=== PATIENT | female | born 1940 | race Caucasian/White ===

== ENCOUNTER → 2016-03-11 | Outpatient (CLI) | payer MEDICAID ==
--- NOTE | 2016-03-11 11:36 | DX ---
Left Rib Series, 4 Views Total, 10:42 a.m. Clinical History: 76-year-old female with left lower rib pain for 3 weeks, and no antecedent trauma. ICD10 Diagnostic Code: R07.81. Comparison Studies: Chest radiography dated January 29, 2016, and unenhanced CT imaging of the ches t dated June 12, 2015. Findings: A metallic BB has been placed over the inferolateral left rib cage. There is no correspond ing rib fracture, lytic or blastic lesion, or periostitis (this does not exclude the possibility of a localized costochondritis). The cardiac silhouette appears mildly enlarged, and there is some tortuo sity of the descending thoracic aorta. There is no focal infiltrate, pleural effusion, peripheral int erstitial edema, or pneumothorax. Degenerative features of the spine are seen. Impression: There is no acute or subacute osseous abnormality identified.
== END ==
LOC: CIMAGING 10:29
PROVIDERS: ATTEND Family Medicine
DX: R07.81 Pleurodynia (principal)
CPT/HCPCS: 71100-PO

== ENCOUNTER → 2016-05-22 | Outpatient (CLI) | payer MEDICAID | LOC: CIMAGING 15:27 | PROVIDERS: ATTEND Family Medicine | DX: M79.671 Pain in right foot (principal); M79.9 Soft tissue disorder, unspecified | CPT/HCPCS: 73650-PO ==

== ENCOUNTER → 2016-07-23 | Outpatient (CLI) | payer MEDICAID | LOC: CIMAGING 11:11 | PROVIDERS: ATTEND Family Medicine | DX: R91.1 Solitary pulmonary nodule (principal) | CPT/HCPCS: 71250-PO ==

== ENCOUNTER → 2016-12-10 | Outpatient (CLI) | payer MEDICAID | LOC: CIMAGING 14:26 | PROVIDERS: ATTEND Family Medicine | DX: M16.11 Unilateral primary osteoarthritis, right hip (principal); M79.604 Pain in right leg | CPT/HCPCS: 73502-PO; 73551-PO ==

== ENCOUNTER → 2016-12-19 | Outpatient (CLI) | payer MEDICAID | LOC: CIMAGING 11:55 | PROVIDERS: ATTEND Family Medicine | DX: Z12.31 Encounter for screening mammogram for malignant neoplasm of breast (principal) | CPT/HCPCS: G0202 ==

== ENCOUNTER → 2017-09-10 | Outpatient (CLI) | payer OTHER, MEDICAID | LOC: BHLMT 11:30 | PROVIDERS: ATTEND Internal Medicine Cardiovascular Disease | DX: I48.91 Unspecified atrial fibrillation (principal) | CPT/HCPCS: 93005-PO ==

== ENCOUNTER 2017-09-15 09:56 | Observation (INO) | payer OTHER, MEDICAID ==
--- NOTE | 2017-09-15 10:08 | CPEKG ---
Heart Rate: 75 RR Interval: 800 QRSD Interval: 78 QT Interval: 372 QTC Interval: 416 QRS [place]: -10 T Wave [place]: 16 EKG Severity - ABNORMAL ECG - EKG Impression: ATRIAL FIBRILLATION Electronically Signed By: Emanuel Mix 15-Sep-2017 10:20:24
[2017-09-15] MEDS ORDERED: ASPIRIN 81 MG CHEWABLE TAB PO ONE (10:13)
--- NOTE | 2017-09-15 10:18 | EDPHY ---
H & P Time Seen by Provider: 09/15/17 10:06 HPI/ROS: CHIEF COMPLAINT: Chest tightness and shortness of breath HISTORY OF PRESENT ILLNESS: The patient is a 77-year-old female who comes to the emergency department complaining of chest tightness and shortness of breath. She has a history of atrial fibrillation on Xarelto and atenolol. She had been on amiodarone until about a year ago but it was discontinued because of slow heart rate. She has been on digoxin for the last [address] David with Cardiology. She complains today of chest tightness particularly when she takes a deep breath. No recent travel. Nonsmoker. No leg pain or swelling. No recent procedures. She is wondering if it is a side effect of the digoxin. No fevers. Cough. No sore throat. She states that the last time she was in atrial fibrillation was 2012. REVIEW OF SYSTEMS: Constitutional: denies: chills, fever, recent illness, recent injury EENTM: denies: blurred vision, double vision, nose congestion Respiratory: See HPI Cardiac: See HPI Gastrointestinal/Abdominal: denies: abdominal pain, diarrhea, nausea, vomiting, blood streaked stools Genitourinary: denies: dysuria, frequency, hematuria, pain Musculoskeletal: denies: joint pain, muscle pain Skin: denies: lesions, rash, jaundice, bruising Neurological: denies: headache, numbness, paresthesia, tingling, dizziness, weakness Hematologic/Lymphatic: denies: blood clots, easy bleeding, easy bruising Immunologic/allergic: denies: HIV/AIDS, transplant EXAM: GENERAL: Well-appearing, well-nourished and in no acute distress. HEAD: Atraumatic, normocephalic. EYES: Pupils equal round and reactive to light, extraocular movements intact, sclera anicteric, conjunctiva are normal. ENT: TMs normal, nares patent, oropharynx clear without exudates. Moist mucous membranes. NECK: Normal range of motion, supple without lymphadenopathy or JVD. LUNGS: Breath sounds clear to auscultation bilaterally and equal. No wheezes rales or rhonchi. HEART: Irregular without murmurs, rubs or gallops. ABDOMEN: Soft, nontender, normoactive bowel sounds. No guarding, no rebound. No masses appreciated. BACK: No CVA tenderness, no spinal tenderness, step-offs or deformities EXTREMITIES: Normal range of motion, no pitting or edema. No clubbing or cyanosis. NEUROLOGICAL: Cranial nerves II through XII grossly intact. Normal speech, normal gait. 5/5 strength, normal movement in all extremities, normal sensation PSYCH: Normal mood, normal affect. SKIN: Warm, dry, normal turgor, no visible rashes or lesions. Source: Patient Exam Limitations: No limitations - Medical/Surgical History Hx Asthma: No Hx Chronic Respiratory Disease: No Hx Diabetes: No Hx Cardiac Disease: Yes Hx Cirrhosis: No Hx Alcoholism: No Hx HIV/AIDS: No Other PMH: TIA/cva. Heart failure. A fibrillation - Family History Significant Family History: No pertinent family hx - Social History Smoking Status: Never smoked Alcohol Use: None Drug Use: None Constitutional: Initial Vital Signs Temperature (C) 36.6 C 09/15/17 10:00 Heart Rate 70 09/15/17 10:00 Respiratory Rate 28 H 09/15/17 10:00 Blood Pressure 127/61 H 09/15/17 10:00 O2 Sat (%) 94 09/15/17 10:00 O2 Delivery Mode Room Air Allergies/Adverse Reactions: No Known Allergies Allergy (Verified 09/15/17 10:04) Home Medications: Medication Instructions Recorded Atenolol [Tenormin 25 mg (*)] 25 mg PO DAILY 09/15/17 C/E/Zn/Cu/OM3/DHA/EPA/LUT/ZEAX 1 each PO DAILY 09/15/17 [Preservision Areds 2 Softgel] Carboxymethylcellulose 1% [Refresh 1 drop EACHEYE DAILY PRN 09/15/17 Celluvisc (*)] Cholecalciferol Vit D3 [Vitamin D3 2,000 units PO DAILY 09/15/17 2000 units tab (OTC)] Digoxin [Lanoxin 250 mcg (RX)] 250 mcg PO DAILY10 09/15/17 Escitalopram Oxalate [Lexapro 10 10 mg PO DAILY 09/15/17 MG] Lisinopril [Zestril 5 mg (*)] 5 mg PO DAILY 09/15/17 Ranitidine HCl 150 mg PO DAILY 09/15/17 Rivaroxaban [Xarelto] 20 mg PO DAILY 09/15/17 Spironolactone [Aldactone 25 MG 25 mg PO DAILY 09/15/17 (*)] Medical Decision Making - Diagnostics EKG Interpretation: An EKG obtained and was read and documented in trace view. Please see trace view for full reading and report. Atrial fibrillation, rate of 75, no acute ischemic changes An EKG obtained and was read and documented in trace view. Please see trace view for full reading and report. Atrial fibrillation, similar to previous Imaging Results: Imaging Impressions Chest X-Ray 09/15/17 10:14 Impression: 1. Diffuse peribronchial thickening suggesting airways disease, with linear scarring/atelectasis in the right midlung. 2. Stable cardiomegaly. Chest/Thorax CTA 09/15/17 11:03 Impression: 1. Negative CT examination of the chest for acute pulmonary thromboembolic disease. 2. Bilateral pleural effusions, small-moderate in size, right greater than left , suggesting congestive failure. 3. Mild mediastinal lymphadenopathy. Results called to Dr. Emanuel Mix at 11:45 AM. Imaging: Discussed imaging studies w/ teacher physically impaired Radiologist ED Course/Re-evaluation: Patient's D-dimer is elevated. She is on Xarelto she states that she has been taking it regularly. Patient's family states that she had an abnormal CT scan just over a year ago with some scarring and they were supposed to get a follow- up scan in the year any ways. CT negative for PE, bilateral pleural effusions consistent with CHF. Patient is saturating 95% on room air. Will consult her animal pathology teacher. 12:15 p.m. I spoke with Dr. Babcock who agrees with admission. Patient and family agree with this plan. 12:25 p.m. I spoke with Priti who accepted for Dr. Roper. 1:00 p.m. While the patient is waiting to be transferred she states she was starting to fall asleep when she woke up gasping. I Was called to evaluate her. Her saturations are 98%. She had clear lungs bilaterally. Rhythm strip but not changed. We will obtain an EKG. She has calmed down significantly and states that she feels better. Differential Diagnosis: Partial list of the Differential diagnosis considered include but were not limited to; CHF exacerbation, arrhythmia, PE, pleurisy, acute coronary disease and although unlikely based on the history and physical exam, I also considered pneumonia, pneumothorax, tumor. I discussed these differential diagnoses and the plan with the patient as well as the usual and expected course. The patient understands that the diagnosis is provisional and that in medicine we are not always correct and that further workup is often warranted. Usual and customary warnings were given. All of the patient's questions were answered. The patient was instructed to return to the emergency department should the symptoms at all worsen or return, otherwise to followup with the physician as we discussed. - Data Points Laboratory Results: 09/15/17 09/15/17 09/15/17 10:23 10:20 10:15 PT INR APTT POC Sodium 141 mEq/L mEq/L (135-145) POC Potassium 4.0 mEq/L mEq/L (3.3-5.0) POC Chloride 109.0 mEq/L mEq/L (97-110) POC Total CO2 22 mEq/L mEq/L (22-31) POC BUN 11 mg/dL mg/dL (7-23) POC Creatinine 1.1 mg/dL H mg/dL (0.6-1.0) POC Glucose 119 mg/dL H mg/dL (70-100) POC Calcium 8.9 mg/dL mg/dL (8.5-10.4) POC Total Bilirubin 0.9 mg/dL mg/dL (0.1-1.4) POC AST 41 IU/L IU/L (14-46) POC ALT 42 IU/L IU/L (9-52) POC Alk Phosphatase 79 IU/L IU/L (38-126) Creatine Kinase 45 IU/L IU/L (0-156) CK-MB (CK-2) Fraction 0.25 ng/mL ng/mL (0.00-4.55) POC Troponin I 0.02 ng/mL ng/mL (0.00-0.08) NT-Pro-B Natriuret Pep 2580 pg/mL H pg/mL (0-450) POC Total Protein 5.9 g/dL L g/dL (6.3-8.2) POC Albumin 3.1 g/dL L g/dL (3.5-5.0) 09/15/17 10:15 PT 23.6 SEC H SEC (12.0-15.0) INR 2.10 H (0.83-1.16) APTT 42.7 SEC H SEC (23.0-38.0) POC Sodium POC Potassium POC Chloride POC Total CO2 POC BUN POC Creatinine POC Glucose POC Calcium POC Total Bilirubin POC AST POC ALT POC Alk Phosphatase Creatine Kinase CK-MB (CK-2) Fraction POC Troponin I NT-Pro-B Natriuret Pep POC Total Protein POC Albumin Medications Given: Discontinued Medications Aspirin (Aspirin) 324 mg PO EDNOW ONE Stop: 09/15/17 10:14 Last Admin: 09/15/17 10:33 Dose: 324 mg Point of Care Test Results: CBC CBC Collection Date 09/15/17 CBC Collection Time 10:15 WBC 6.2 RBC 4.57 PLT 251 Neut # 4.3 Neut 68.9 LYMPH # 1.2 LYMPH 19.2 Other WBC # 0.7 Other WBC 11.9 Chemistry 09/15/17 09/15/17 10:23 10:20 POC Sodium 141 mEq/L mEq/L (135-145) POC Potassium 4.0 mEq/L mEq/L (3.3-5.0) POC Chloride 109.0 mEq/L mEq/L (97-110) POC Total CO2 22 mEq/L mEq/L (22-31) POC BUN 11 mg/dL mg/dL (7-23) POC Creatinine 1.1 mg/dL H mg/dL (0.6-1.0) POC Glucose 119 mg/dL H mg/dL (70-100) POC Calcium 8.9 mg/dL mg/dL (8.5-10.4) POC Total Bilirubin 0.9 mg/dL mg/dL (0.1-1.4) POC AST 41 IU/L IU/L (14-46) POC ALT 42 IU/L IU/L (9-52) POC Alk Phosphatase 79 IU/L IU/L (38-126) POC Troponin I 0.02 ng/mL ng/mL (0.00-0.08) POC Total Protein 5.9 g/dL L g/dL (6.3-8.2) POC Albumin 3.1 g/dL L g/dL (3.5-5.0) D-Dimer D-Dimer Collection Date 09/15/17 D-Dimer Collection Time 10:40 D-Dimer (ng/ml) 257 Departure - Departure Disposition: [facility] Inpatient Acute Clinical Impression: Chest pain Qualifiers: Chest pain type: unspecified Qualified Code(s): R07.9 - Chest pain, unspecified Condition: Fair
[2017-09-15] MEDS ORDERED: IOPAMIDOL (ISOVUE 370) 100 ML BTL IV ONE (11:13)
[2017-09-15 11:24] LABS: INR 2.1 (0.83-1.16); PROTIME(PATIENT) 23.6 SEC (12.0-15.0)
[2017-09-15 11:40] LABS: CREATINE KINASE 45 IU/L (0-156)
--- NOTE | 2017-09-15 13:07 | CPEKG ---
Heart Rate: 78 RR Interval: 769 QRSD Interval: 78 QT Interval: 368 QTC Interval: 420 QRS [place]: 33 T Wave [place]: 35 EKG Severity - ABNORMAL ECG - EKG Impression: ATRIAL FIBRILLATION EKG Impression: LOW VOLTAGE IN FRONTAL LEADS EKG Impression: BORDERLINE R WAVE PROGRESSION, ANTERIOR LEADS EKG Impression: BORDERLINE T ABNORMALITIES, ANTERIOR LEADS Electronically Signed By: Emanuel Mix 15-Sep-2017 13:24:22
[2017-09-15] MEDS ORDERED: ACETAMINOPHEN 325 MG TAB PO PRN (14:25)
--- NOTE | 2017-09-15 14:53 | PDGENHP ---
History and Physical - Chief Complaint SOB - History of Present Illness 77 yo female with h/o HF and A fib presents to ED with shortness of breath, started 3 days ago. She endorses orthopnea and PND. Denies peripheral edema. She also reports chest pressure associated with the shortness of breath. No radiation of the pain. No nausea or diaphoresis. She was previously on amiodarone for A fib, but this was stopped several weeks ago and she was started on Digoxin. She says she stopped taking the Digoxin 3 days ago because her HR was too low, around 70. She denies cough or fevers. No abdominal or urinary symptoms. In the ED, her BNP is elevated. Chest imaging shows bilateral pleural effusions , suspicious for heart failure etiology. Her troponin is negative and EKG is non-ischemic. She is admitted to the hospital for further management. History Information - Allergies/Home Medication List Allergies/Adverse Reactions: No Known Allergies Allergy (Verified 09/15/17 10:04) Home Medications: Atenolol [Tenormin 25 mg (*)] 25 mg PO DAILY 09/15/17 [Last Taken 09/14/17] C/E/Zn/Cu/OM3/DHA/EPA/LUT/ZEAX [Preservision Areds 2 Softgel] 1 each PO DAILY [Last Taken 09/14/17] Carboxymethylcellulose 1% [Refresh Celluvisc (*)] 1 drop EACHEYE DAILY PRN 09/15 [Last Taken Unknown] Cholecalciferol Vit D3 [Vitamin D3 2000 units tab (OTC)] 2,000 units PO DAILY [Last Taken 09/14/17] Digoxin [Lanoxin 250 mcg (RX)] 250 mcg PO DAILY10 09/15/17 [Last Taken 09/14/17] Escitalopram Oxalate [Lexapro 10 MG] 10 mg PO DAILY 09/15/17 [Last Taken ] Lisinopril [Zestril 5 mg (*)] 5 mg PO DAILY 09/15/17 [Last Taken 09/14/17] Ranitidine HCl 150 mg PO DAILY 09/15/17 [Last Taken 09/15/17] Rivaroxaban [Xarelto] 20 mg PO DAILY 09/15/17 [Last Taken 09/14/17] Spironolactone [Aldactone 25 MG (*)] 25 mg PO DAILY 09/15/17 [Last Taken ] I have personally reviewed and updated: family history, medical history, social history, surgical history - Past Medical History atrial fibrillation, CVA, hypertension, TIA Additional medical history: H/O heart failure, HFpEF - Surgical History Reports: no pertinent surgical hx - Family History Positive for: cancer Additional family history: Mom had breast cancer - Social History Smoking Status: Never smoked Alcohol Use: None Drug Use: None Additional social history: Lives alone in [place]. Review of Systems Review of Systems: ROS: 10pt was reviewed & negative except for what was stated in HPI & below Physical Exam Physical Exam: Temp Pulse Resp BP Pulse Ox 36.4 C 78 20 132/81 H 93 09/15/17 14:23 09/15/17 14:23 09/15/17 14:23 09/15/17 14:23 09/15/17 14:23 Constitutional: no apparent distress Eyes: PERRL Ears, Nose, Mouth, Throat: moist mucous membranes Cardiovascular: irregularly irregular, other (+JVD ~10-12 cm) Respiratory: no respiratory distress, other (decreased breath sounds at b/l bases) Gastrointestinal: normoactive bowel sounds, soft, non-tender abdomen Skin: warm Musculoskeletal: full muscle strength Neurologic: AAOx3 Psychiatric: interacting appropriately Lab Data & Imaging Review PT 23.6 SEC (12.0-15.0) H 09/15/17 10:15 INR 2.10 (0.83-1.16) H 09/15/17 10:15 APTT 42.7 SEC (23.0-38.0) H 09/15/17 10:15 POC Sodium 141 mEq/L (135-145) 09/15/17 10:23 POC Potassium 4.0 mEq/L (3.3-5.0) 09/15/17 10:23 POC Chloride 109.0 mEq/L (97-110) 09/15/17 10:23 POC Total CO2 22 mEq/L (22-31) 09/15/17 10:23 POC BUN 11 mg/dL (7-23) 09/15/17 10:23 POC Creatinine 1.1 mg/dL (0.6-1.0) H 07/16/18 10:23 POC Glucose 119 mg/dL (70-100) H 09/15/17 10:23 POC Calcium 8.9 mg/dL (8.5-10.4) 09/15/17 10:23 POC Total Bilirubin 0.9 mg/dL (0.1-1.4) 09/15/17 10:23 POC AST 41 IU/L (14-46) 09/15/17 10:23 POC ALT 42 IU/L (9-52) 09/15/17 10:23 POC Alk Phosphatase 79 IU/L (38-126) 09/15/17 10:23 Creatine Kinase 45 IU/L (0-156) 09/15/17 10:15 CK-MB (CK-2) Fraction 0.25 ng/mL (0.00-4.55) 09/15/17 10:15 POC Troponin I 0.02 ng/mL (0.00-0.08) 09/15/17 10:20 NT-Pro-B Natriuret Pep 2580 pg/mL (0-450) H 09/15/17 10:15 POC Total Protein 5.9 g/dL (6.3-8.2) L 09/15/17 10:23 POC Albumin 3.1 g/dL (3.5-5.0) L 09/15/17 10:23 Visualized and Interpreted Chest x-ray results: Yes Chest X-Ray results: no infiltrate, other (peribronchial thickening, no infiltrate) Visualized and Interpreted EKG results: Yes EKG Interpretation: Positive for: normal sinsus rhythm EKG additional interpertation: mild T wave flattening / inversions anterior leads Assessment & Plan Assessment: Acute heart failure, suspect HFpEF - No hypoxemia. BNP 2580, previously ~1, 300. CT shows b/l effusions most suspicious for HF etiology. A fib may be contributory, though she is currently rate controlled. Last echo in our system (also checked Katelynn) was 2012, at which time her EF was 55-60%, mod MR and bi -atrial enlargement noted -IV Lasix now, start with low dose -continue spironolactone -check echo to re-eval LV function and valve disease -monitor I&O's, daily weights Chest pain - likely due to above. S/P 325 mg ASA. Trop neg. EKG non-ischemic though some non-specific T wave changes noted. -trend troponin -check lipid status -plan for inpt risk stratification given HEART score >3, will defer until better compensated from HF -cardiology consulted by ED A fib - currently rate controlled, on Xarelto -cont Atenolol, pt recently stopped Digoxin and will continue to hold this given good rate control on BB alone -check dig level -cont Xarelto for CVA prevention Mod MR - recheck echo to evaluate if progressive valve disease contributing to HF presentation BAUTISTA - mild elevation of Cr to 1.1, query cardiorenal -follow closely with diuresis H/O TIA - on xarelto, not on statin -check lipid status Hypertension - cont BB, Ej Full code Dispo - obs, may warrant transition to inpatient tomorrow if ongoing diuresis or further cardiac eval is needed
[2017-09-15] MEDS ORDERED: PROTOCOL POTASSIUM 1 DOSE MISC PRN (15:02)
[2017-09-15] MEDS ORDERED: CARBOXYMETHYLCELLULOSE 1% 0.4 ML DROPERETTE EACHEYE PRN (15:11)
[2017-09-15 15:45] LABS: PLATELET COUNT 203 10^3/uL (150-400)
[2017-09-15] MEDS: RIVAROXABAN 20 MG TAB PO SCH (16:41)
[2017-09-15] MEDS: FUROSEMIDE 20 MG/2 ML VIAL IVP SCH (16:41)
[2017-09-15] MEDS: ESCITALOPRAM OXALATE 10 MG TAB PO SCH (16:41)
[2017-09-15] MEDS: SPIRONOLACTONE 25 MG TAB PO SCH (16:42)
[2017-09-15] MEDS: ATENOLOL 25 MG TAB PO SCH (16:42)
[2017-09-15] MEDS ORDERED: POTASSIUM CL 10 MEQ TAB PO ONE (20:47)
[2017-09-15] MEDS ORDERED: traZODone 50 MG TAB PO PRN (21:38)
--- NOTE | 2017-09-16 07:47 | ECHO ---
[email or web address] [address] [address] Main: [phone] Fax: Transthoracic Echocardiogram Name: DEVENDRA DAIGLE MR#: [id number] Study Date: 09/15/2017 Study Time: 03:26 PM Date of : 1940 Age: 77 year(s) Height: 162.6 cm (64 in.) Weight: 65.77 kg (145 lb.) BSA: 1.71 m2 Gender: Female Examination: Echo with Agitated Saline Indication: A FIB, ACUTE HEART FAILURE Image Quality: Adequate Contrast: Requested by: Ekta Roper BP: 132 mmHg/81 mmHg Heart Rate: Rhythm: Indication: A FIB, ACUTE HEART FAILURE Procedure Staff Banking Analyst: Ambika Rg RDCS Reading Physician: John Daniels MD Requesting Provider: Conclusions: No pericardial effusion. Ejection fraction 57% without regional wall motion abnormalities. Tissue Doppler suggests normal filling pressures. Progressive valvular heart disease with severe tricuspid regurgitation moderate aortic regurgitation moderate mitral regurgitation right ventricular systolic pressure of 38 mm of mercury. Color Doppler and injection of agitated saline suggest right to left shunting with ASD versus PFO. Consider transesophageal echocardiogram for further evaluation. Measurements: Chambers Valvular Assessment AV/MV Valvular Assessment TV/PV Normal Normal Normal Name Value Range Name Value Range Name Value Range Ao [place] (2D): 3.2 cm (1.4 cm-2.6 AV Vmax: 1.50 m/s (1 m/s-1.7 TR Vmax: 2.87 mm/s ( - ) cm) m/s) TR PGmax: 33 mmHg ( - ) IVSd (2D): 1.0 cm (0.6 cm-1.1 AV maxP mmHg ( - ) syst. PAP: 38 mmHg ( - ) cm) AV meanP mmHg ( - ) PV Vmax: 0.75 m/s (0.6 m/s-0.9 LVDd (2D): 3.9 cm (3.9 cm-5.3 AR (PHT): 527 ms ( - ) m/s) cm) MV E Vmax: 0.95 m/s ( - ) PV PGmax: 2 mmHg ( - ) LVDs (2D): 2.5 cm (2.1 cm-4 MV PHT: 0.070 s ( - ) cm) MVA (PHT): 3.1 s ( - ) LVPWd (2D): 0.9 cm ( - ) LVEF (BP): 57 % (>=55 %) RVDd(2D): 3.6 cm (1.9 cm-3.8 cmmm) Continued Measurements: Chambers Valvular Assessment AV/MV Valvular Assessment TV/PV Name Value Name Value Name Value Patient: DEVENDRA DAIGLE Study Date: 09/15/2017 Page 1 of 2 03:26 PM LADs: 4.0 cm MV Annulus: 3.2 cm CVP (est.): 5 mmHg LADs Lon.7 cm MV DecTime: 246 m/s LA Area: 24.7 cm2 MV E' Septal: 0.11 m/s LA Volume: 102 ml MV E/E' Septal: 8.90 LA Volume Index: 59.6 ml/m2 MV E/E' Lateral: 9.10 RA Area: 31.9 cm2 MR ERO: 0.240 cm2 MR PISA radius: 7 mm MR Reg. Volume: 42 ml AR Vmax: 4.41 cm/s Additional Vessels Name Value Ao Ascendin.6 cm Findings: Left Ventricle: Normal size left ventricle. No LV hypertrophy. Normal global systolic LV function. EF is 57 %. No regional wall motion abnormality. Unable to assess diastolic dysfunction. Right Ventricle: Upper normal size right ventricle. Normal RV function. Left Atrium: The left atrium is severely dilated. An agitated saline study was performed and was positive for intracardiac shunting. There is evidence of ASD vs PFO by color doppler. Right Atrium: The right atrium is severely dilated. Mitral Valve: The mitral valve is normal in appearance and function. Mild mitral valve leaflet calcification is present. Moderate mitral valve regurgitation is present. No mitral stenosis is present. Multiple jets of mitral regurgitation are noted. Aortic Valve: The aortic valve is tri-leaflet. Aortic sclerosis is present. Mild to moderate aortic valve regurgitation. No aortic valve stenosis is present. Tricuspid Valve: The tricuspid valve is normal in appearance and function. Severe tricuspid regurgitation is present. The pulmonary artery pressure is normal. Right ventricular systolic pressure measures 38mmHg. Pulmonic Valve: The pulmonic valve is normal in appearance and function. There is no pulmonic regurgitation seen. Aorta: The aorta is normal. Normal size aortic root measuring 3.2 cm. Normal size ascending aorta measuring 3.6 cm. IVC: The IVC is normal sized. Pericardium: No pericardial effusion. No pleural effusion. (No Signature Object) Patient: DEVENDRA DAIGLE Study Date: 09/15/2017 Page 2 of 2 03:26 PM [id number]
[2017-09-16] MEDS ORDERED: FAMOTIDINE 20 MG TAB PO SCH (09:00)
[2017-09-16] MEDS ORDERED: LISINOPRIL 5 MG TAB PO SCH (09:00)
[2017-09-16] MEDS: FUROSEMIDE 20 MG/2 ML VIAL IVP SCH (09:17)
[2017-09-16] MEDS: ESCITALOPRAM OXALATE 10 MG TAB PO SCH (09:27)
[2017-09-16] MEDS: RIVAROXABAN 20 MG TAB PO SCH (09:27)
[2017-09-16] MEDS: ATENOLOL 25 MG TAB PO SCH (09:27)
[2017-09-16] MEDS: SPIRONOLACTONE 25 MG TAB PO SCH (09:30)
--- NOTE | 2017-09-16 10:03 | PDCARCONS ---
Cardiology Consult Reason for Consult: Shortness of breath Chief Complaint: Abdominal pain shortness of breath Requesting Physician: Jacquelin History of Present Illness: 69-year-old female well known to our service with a 2 day history of progressive epigastric pain/abdominal pain that increased to shortness of breath a new onset paroxysmal nocturnal dyspnea. This was associated with an increase in heart rate. Patient is feeling much better today after diuretic therapy. She has a longstanding history of atrial fibrillation. She was seen September 10 by my partner. At that time she was felt to be rate controlled. Etiology of her atrial fibrillation is quite complex. She has progressive valvular heart disease characterized by moderate mitral regurgitation, mild-to- moderate aortic insufficiency, moderate to severe tricuspid regurgitation with significant biatrial enlargement. She has had attempts at cardioversion in the past. She had a workup for underlying coronary artery disease in March of [address] based coronary angiogram revealing minimal atherosclerosis. Her left ventricular function has been preserved. She has had longstanding hypertension which has been well controlled. This has been complicated by a TIA /CVA. Patient reports that she is quite active going to the gym and walking without limitations. She did have some chest pressure associated with this incident with potential radiation to her left arm. This has now resolved. This morning she is feeling back to her usual state of good health and anxious to go home. She has been on high risk medication/Coumadin without complication. Patient denies syncope, near syncope. Patient denied fever chills. She has had no nausea vomiting or diarrhea. Her health has otherwise been good. History Information - Allergies/Home Medication List Allergies/Adverse Reactions: No Known Allergies Allergy (Verified 09/15/17 10:04) Home Medications: Atenolol [Tenormin 25 mg (*)] 25 mg PO DAILY 09/15/17 [Last Taken 09/14/17] C/E/Zn/Cu/OM3/DHA/EPA/LUT/ZEAX [Preservision Areds 2 Softgel] 1 each PO DAILY [Last Taken 09/14/17] Carboxymethylcellulose 1% [Refresh Celluvisc (*)] 1 drop EACHEYE DAILY PRN 09/15 [Last Taken Unknown] Cholecalciferol Vit D3 [Vitamin D3 2000 units tab (OTC)] 2,000 units PO DAILY [Last Taken 09/14/17] Digoxin [Lanoxin 250 mcg (RX)] 250 mcg PO DAILY10 09/15/17 [Last Taken 09/14/17] Escitalopram Oxalate [Lexapro 10 MG] 10 mg PO DAILY 09/15/17 [Last Taken ] Lisinopril [Zestril 5 mg (*)] 5 mg PO DAILY 09/15/17 [Last Taken 09/14/17] Ranitidine HCl 150 mg PO DAILY 09/15/17 [Last Taken 09/15/17] Rivaroxaban [Xarelto] 20 mg PO DAILY 09/15/17 [Last Taken 09/14/17] Spironolactone [Aldactone 25 MG (*)] 25 mg PO DAILY 09/15/17 [Last Taken ] I have personally reviewed and updated: family history, medical history, social history, surgical history Past Medical History: - Past Medical History atrial fibrillation, coronary artery disease, GERD, hypertension, TIA - Surgical History Reports: no pertinent surgical hx - Family History Positive for: non-pertinent - Social History Smoking Status: Never smoked Alcohol Use: None Drug Use: None Age in Years: 75 or older Sex: Female Hypertension History: Yes Stroke/TIA/Thromboembolism History: Yes Vascular Disease History: No Diabetes Mellitus: No Physical Exam Physical Exam: Temp Pulse Resp BP Pulse Ox 36.4 C 86 28 H 132/78 H 93 09/16/17 08:00 09/16/17 08:00 09/16/17 08:00 09/16/17 08:00 09/16/17 08:00 Constitutional: other (Dyspneic) Eyes: anicteric sclera Ears, Nose, Mouth, Throat: dry mucous membranes Cardiovascular: systolic murmur, irregularly irregular, other (Mild RV lift) Peripheral Pulses: 1+: carotid (R), carotid (L), femoral (R), femoral (L), dorsalis-pedis (R), dorsalis-pedis (L) Respiratory: clear to auscultation, No expiratory wheeze, No inspiratory crackles Gastrointestinal: normoactive bowel sounds, other (Mild discomfort on deep palpation in the right upper quadrant), No hepatosplenomegally Skin: warm Neurologic: AAOx3, No weakness, No facial droop Psychiatric: interacting appropriately Lymph, Heme, Immunologic: no cervical LAD, no supraclavicular LAD Lab and Imaging 09/15/17 15:30 09/16/17 03:43 WBC 5.07 10^3/uL (3.80-9.50) 09/15/17 15:30 RBC 3.92 10^6/uL (4.18-5.33) L 09/15/17 15:30 Hgb 10.2 g/dL (12.6-16.3) L 09/15/17 15:30 Hct 32.9 % (38.0-47.0) L 09/15/17 15:30 MCV 83.9 fL (81.5-99.8) 09/15/17 15:30 MCH 26.0 pg (27.9-34.1) L 09/15/17 15:30 MCHC 31.0 g/dL (32.4-36.7) L 09/15/17 15:30 RDW 14.7 % (11.5-15.2) 09/15/17 15:30 Plt Count 203 10^3/uL (150-400) 09/15/17 15:30 MPV 9.8 fL (8.7-11.7) 09/15/17 15:30 Neut % (Auto) 54.8 % (39.3-74.2) 09/15/17 15:30 Lymph % (Auto) 32.7 % (15.0-45.0) 09/15/17 15:30 [place] % (Auto) 9.3 % (4.5-13.0) 09/15/17 15:30 Eos % (Auto) 2.6 % (0.6-7.6) 09/15/17 15:30 Baso % (Auto) 0.4 % (0.3-1.7) 09/15/17 15:30 Nucleat RBC Rel Count 0.0 % (0.0-0.2) 09/15/17 15:30 Absolute Neuts (auto) 2.78 10^3/uL (1.70-6.50) 09/15/17 15:30 Absolute Lymphs (auto) 1.66 10^3/uL (1.00-3.00) 09/15/17 15:30 Absolute Monos (auto) 0.47 10^3/uL (0.30-0.80) 09/15/17 15:30 Absolute Eos (auto) 0.13 10^3/uL (0.03-0.40) 09/15/17 15:30 Absolute Basos (auto) 0.02 10^3/uL (0.02-0.10) 09/15/17 15:30 Absolute Nucleated RBC 0.00 10^3/uL (0-0.01) 09/15/17 15:30 Immature Gran % 0.2 % (0.0-1.1) 09/15/17 15:30 Immature Gran # 0.01 10^3/uL (0.00-0.10) 09/15/17 15:30 PT 23.6 SEC (12.0-15.0) H 09/15/17 10:15 INR 2.10 (0.83-1.16) H 09/15/17 10:15 APTT 42.7 SEC (23.0-38.0) H 09/15/17 10:15 POC Sodium 141 mEq/L (135-145) 09/15/17 10:23 Sodium 139 mEq/L (135-145) 09/16/17 03:43 POC Potassium 4.0 mEq/L (3.3-5.0) 09/15/17 10:23 Potassium 4.1 mEq/L (3.3-5.0) 09/16/17 03:43 POC Chloride 109.0 mEq/L (97-110) 09/15/17 10:23 Chloride 109 mEq/L (97-110) 09/16/17 03:43 Carbon Dioxide 26 mEq/l (22-31) 09/16/17 03:43 POC Total CO2 22 mEq/L (22-31) 09/15/17 10:23 Anion Gap 4 mEq/L (8-16) L 09/16/17 03:43 POC BUN 11 mg/dL (7-23) 09/15/17 10:23 BUN 17 mg/dL (7-23) 09/16/17 03:43 Creatinine 0.8 mg/dL (0.6-1.0) 09/16/17 03:43 POC Creatinine 1.1 mg/dL (0.6-1.0) H 09/15/17 10:23 Estimated GFR > 60 07/17/18 03:43 Glucose 89 mg/dL (70-100) 09/16/17 03:43 POC Glucose 119 mg/dL (70-100) H 09/15/17 10:23 POC Calcium 8.9 mg/dL (8.5-10.4) 09/15/17 10:23 Calcium 8.6 mg/dL (8.5-10.4) 09/16/17 03:43 POC Total Bilirubin 0.9 mg/dL (0.1-1.4) 09/15/17 10:23 POC AST 41 IU/L (14-46) 09/15/17 10:23 POC ALT 42 IU/L (9-52) 09/15/17 10:23 POC Alk Phosphatase 79 IU/L (38-126) 09/15/17 10:23 Creatine Kinase 45 IU/L (0-156) 09/15/17 10:15 CK-MB (CK-2) Fraction 0.25 ng/mL (0.00-4.55) 09/15/17 10:15 POC Troponin I 0.02 ng/mL (0.00-0.08) 09/15/17 10:20 Troponin I 0.037 ng/mL (0.000-0.034) H 09/15/17 19:00 NT-Pro-B Natriuret Pep 2580 pg/mL (0-450) H 09/15/17 10:15 POC Total Protein 5.9 g/dL (6.3-8.2) L 09/15/17 10:23 POC Albumin 3.1 g/dL (3.5-5.0) L 09/15/17 10:23 Triglycerides 122 mg/dL (35-135) 09/16/17 03:43 Cholesterol 110 mg/dL (140-220) L 09/16/17 03:43 Cholesterol Risk Factr 0.5 (0.2-1.0) 09/16/17 03:43 LDL Cholesterol, Calc 51 mg/dL (80-100) L 09/16/17 03:43 LDL Risk Factor 0.5 (0.2-1.0) 09/16/17 03:43 VLDL Cholesterol 24 mg/dL (8-25) 09/16/17 03:43 Non-HDL Cholesterol 75 mg/dL (90-129) L 09/16/17 03:43 HDL Cholesterol 35 mg/dL (40-85) L 09/16/17 03:43 LDL/HDL Ratio 1.45 RATIO (1.00-3.22) 09/16/17 03:43 Cholesterol/HDL Ratio 3.14 RATIO (1.00-4.44) 09/16/17 03:43 Digoxin 0.6 ng/mL (0.8-2.0) L 09/15/17 10:15 Chest X-ray Interpretation: other (Cardiomegaly bilateral effusions.) Visualized and Interpreted imaging results: Yes EKG Interpretation: Positive for: other (Atrial fibrillation with low voltage across the precordium.) Echocardiogram: Primarily your review. Preserved LV systolic function. Severe biatrial enlargement with moderate mitral regurgitation, moderate aortic insufficiency, moderate to severe tricuspid regurgitation. A/P Assessment: Problem list: 1. Heart failure with preserved ejection fraction, elevated brain atretic peptide. 2. Chronic atrial fibrillation 3. Progressive valvular heart disease with moderate mitral regurgitation, moderate aortic insufficiency, moderate to severe tricuspid regurgitation. 4. Low voltage on EKG associated with severe biatrial enlargement and atrial fibrillation, new heart failure out of proportion to LV systolic function. Query amyloid 5. Longstanding hypertension 6. End-organ damage secondary to hypertension includes TIA/CVA 7. Anemia with hemoglobin of 10. Normocytic. 8. Coronary artery disease by CT imaging. Mild elevation in troponin. Impression: Patient clearly admitted with episode of heart failure associated with preserved ejection fraction. Etiology likely multifactorial. She is currently improving with gentle diuresis. Her atrial fibrillation is rate controlled. She is appropriately anticoagulated on warfarin. Clinically she feels almost back to baseline. Recommendations: Continue outpatient medications with addition of Lasix. Outpatient follow-up with primary game warden Dr. Kelsey and Dr. Ruby to consider further evaluation. In particular fat pad biopsy, repeat cardiac catheterization, repeat REGGIE to determine potential surgical targets. Further evaluation of underlying anemia especially in the setting of high risk medication use. Plan: IV diuresis transition to p.o. Lasix. Follow-up Dr. Tung David as outpatient for further evaluation. Anemia evaluation.
[2017-09-16 12:27] VITALS: BP 137/86
--- NOTE | 2017-09-16 13:51 | ASMTCMCOM ---
CM Note CM Note Notes: 09/16/2017 Case Management Note Met pt during multi disciplinary rounds this morning. Pt admitted for chest pain and subsequent work up. Pt was independent in ADL's prior to admission and has family in the room for support. There are no identified case management d/c needs at this time. There are no PT or OT evals ordered. Case Management d/c poc: anticipating independent with follow up as directed. Case Management available if needs change. Date Signed: 09/16/2017 01:50 PM Electronically Signed By:Soumya Steinberg RN
--- NOTE | 2017-09-16 16:18 | PDDCSUM ---
Discharge Summary Discharge Summary: Dates of service 09/15-09/16/17 Consultations: cardiology Procedures performed: chest CTA, echocardiogram Hospital course by problem: Acute heart failure, with preserved EF - No hypoxemia. BNP 2580, previously ~1, 300. CT shows b/l effusions most suspicious for HF etiology. Overall her sxs are mild and she would prefer to dc home and f/u with cardiology who felt that is a reasonable plan. Started on lasix. 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 Chest pain - likely due to above. S/P 325 mg ASA. Trop neg. EKG non-ischemic though some non-specific T wave changes noted. A fib - currently rate controlled, on Xarelto -cont Atenolol -cont Xarelto for CVA prevention VHD: with moderate mitral regurg, moderate aortic insufficiency and moderate to severe TR, f/u with cardiology, they do not feel any urgent intervention required at this time BAUTISTA - mild elevation of Cr to 1.1, query cardiorenal, improved with diuresis H/O TIA - on xarelto, not on statin -check lipid status Hypertension - cont BB, Ej CAD: noted on CT imaging, f/u with cardiology as above Patient discharged to home f/u with Items for follow up: --f/u diuresis --f/u rate control of a fib --f/u renal function > 35 min spent in dc more than half in coordination of care
--- NOTE | 2017-09-16 17:04 | ASDISCHSUM ---
Discharge Information Plan Status:Home with No Needs Medically Cleared to Leave:09/16/2017 Discharge Date:09/16/2017 CM D/C Disposition:Home, Routine, Self-Care ADT D/C Disposition:Home, Routine, Self-Care Projected Discharge Date:09/16/2017 Transportation at D/C:Family Discharge Delay Reason: Follow-Up Date:09/16/2017 Discharge Slot: Final Diagnosis: Placement Information Patient Contact Information Contact Name:KALIE Relationship:Daughter Address: Home Phone: City: [facility] Phone: [facility] Code: Email: Financial Information Financial Class:Medicare Primary Plan Desc:MEDICARE OUTPATIENT Primary Plan Number:[id number] Secondary Plan Desc:MEDICAID HEALTH FIRST [place] Secondary Plan Number:[id number] Assessment Information LACE LACE Length of stay for Answers: 1 day current admission Acuity / Level of Answers: No Care: Did the patient have an inpatient admission? Comorbidities - select Answers: Cerebrovascular disease all that apply (CVA, TIA, aneurysms, vasc ular dementia) Other Notes: AFib; HTN # of Emergency department Answers: 1-2 visits in the last 6 months Score: 4 Date Signed: 09/16/2017 04:56 PM Electronically Signed By:Soumya Steinberg RN [facility] CM Progress Note CM Note CM Note Notes: 09/16/2017 Case Management Note Met pt during multi disciplinary rounds this morning. Pt admitted for chest pain and subsequent work up. Pt was independent in ADL's prior to admission and has family in the room for support. There are no identified case management d/c needs at this time. There are no PT or OT evals ordered. Case Management d/c poc: anticipating independent with follow up as directed. Case Management available if needs change. Date Signed: 09/16/2017 01:50 PM Electronically Signed By:Soumya Steinberg RN Case Management Discharge Plan Note Case Management Discharge Discharge Order Complete? Answers: Yes Patient to Obtain Answers: Independently Medications Transportation Arranged Answers: Family/Friends Discharge Comments Notes: 09/16/2017 Case Management Note Pt to discharge independent with follow up as directed. Date Signed: 09/16/2017 04:55 PM Electronically Signed By:Soumya Steinberg RN Intervention Information Intervention Type:*ALEX-Signed Date of Service:09/16/2017 11:03 AM Patient Type:Observation Staff Member:Angelika Willson Hours: Discipline: Severity: Comment:
== END 2017-09-16 18:38 | disposition home or self-care (01) ==
LOC: CED 09:56 → CEDHOLD 12:26 → F2W 13:33
PROVIDERS: ADMIT Hospitalist; ATTEND Internal Medicine
DX: I50.9 Heart failure, unspecified (principal); R07.9 Chest pain, unspecified; I48.2 Chronic atrial fibrillation; I11.0 Hypertensive heart disease with heart failure; D64.9 Anemia, unspecified; N17.9 Acute kidney failure, unspecified; I08.3 Combined rheumatic disorders of mitral, aortic and tricuspid valves; I25.10 Atherosclerotic heart disease of native coronary artery without angina pectoris; K21.9 Gastro-esophageal reflux disease without esophagitis; Z79.01 Long term (current) use of anticoagulants; Z86.73 Personal history of transient ischemic attack (TIA), and cerebral infarction without residual deficits; Z80.3 Family history of malignant neoplasm of breast
CPT/HCPCS: 71046; 71275; 93005; 93306; G0378; J1940; Q9967; 80053-PO; 84484-PO

== ENCOUNTER → 2017-10-27 | Outpatient (CLI) | payer OTHER, MEDICAID | LOC: BHFA 09:30 | PROVIDERS: ATTEND Internal Medicine Cardiovascular Disease | DX: I48.91 Unspecified atrial fibrillation (principal); I50.9 Heart failure, unspecified; R06.02 Shortness of breath | CPT/HCPCS: 78452; 93017; A9500; J2785 ==

== ENCOUNTER 2018-02-26 12:20 | Inpatient (IN) | payer OTHER, MEDICAID ==
[2018-02-26 13:00] LABS: PLATELET COUNT 266 10^3/uL (150-400)
[2018-02-26] MEDS ORDERED: ONDANSETRON 4 MG/2 ML VIAL IVP ONE (13:08)
[2018-02-26] MEDS ORDERED: IPRATROPIUM/ALBUTEROL 3 ML DEYVIAL IH ONE (13:12)
--- NOTE | 2018-02-26 13:12 | EDPHY ---
H & P Stated Complaint: n/v, weakness, SOB Time Seen by Provider: 02/26/18 12:45 HPI/ROS: CHIEF COMPLAINT: Cough, shortness of breath HISTORY OF PRESENT ILLNESS: 78-year-old female with congestive heart failure presents with cough and shortness of breath. Onset of sore throat, runny nose and cough yesterday. Symptoms worsened today. Cough is productive and associated with shortness of breath and fever. She feels short of breath at rest and shortness of breath increases with exertion. Vomiting since yesterday , unable to tolerate oral fluids. Seen in her PCPs office just prior to arrival and sent to the ED for evaluation. Flu test was negative in the office. REVIEW OF SYSTEMS: complete 10 point ROS reviewed and is negative except for the noted elements in the HPI - Personal History Current Tetanus/Diphtheria Vaccine: Yes Current Tetanus Diphtheria and Acellular Pertussis (TDAP): Yes - Medical/Surgical History Hx Asthma: No Hx Chronic Respiratory Disease: No Hx Diabetes: No Hx Cardiac Disease: Yes Hx Renal Disease: No Hx Cirrhosis: No Hx Alcoholism: No Hx HIV/AIDS: No Hx Splenectomy or Spleen Trauma: No Other PMH: TIA/cva, PFO 2013, Heart failure. A fibrillation, HTN, depression, PNA, lung nodule, incontinence, R ankle fracture. - Social History Smoking Status: Never smoked Alcohol Use: Sober Drug Use: None - Physical Exam Exam: General Appearance: Alert, pleasant Eyes: Pupils equal and round, no conjunctival pallor or injection ENT, Mouth: Mucous membranes moist Neck: Normal inspection Respiratory: Tachypnea, wheezing in the upper lung ramirez Cardiovascular: Regular rate and rhythm Gastrointestinal: Abdomen is soft and nontender Neurological: A&O, nonfocal exam Skin: Warm and dry, no rash Extremities: Nontender, no pedal edema Psychiatric: Mood and affect normal Constitutional: Initial Vital Signs Temperature (C) 36.4 C 02/26/18 12:27 Heart Rate 95 02/26/18 12:27 Respiratory Rate 30 H 02/26/18 12:27 Blood Pressure 152/92 H 02/26/18 12:27 O2 Sat (%) 77 L 02/26/18 12:27 O2 Delivery Mode Nasal Cannula O2 (L/minute) 3 Allergies/Adverse Reactions: No Known Allergies Allergy (Verified 02/26/18 12:25) Home Medications: Medication Instructions Recorded Cholecalciferol Vit D3 [Vitamin D3 2,000 units PO DAILY 02/26/18 (*)] Escitalopram Oxalate [Lexapro] 5 mg PO DAILY 02/26/18 Lisinopril [Zestril 10 mg (*)] 10 mg PO DAILY 02/26/18 Metoprolol Succinate Xr [Toprol Xl 50 mg PO DAILY 02/26/18 50 mg (*)] Ranitidine HCl [Zantac] 150 mg PO DAILY 02/26/18 Rivaroxaban [Xarelto] 20 mg PO DAILY@18 02/26/18 Spironolactone [Aldactone 25 MG 12.5 mg PO DAILY 02/26/18 (*)] Torsemide [Demadex] 20 mg PO DAILY 02/26/18 Medical Decision Making - Diagnostics EKG Interpretation: EKG interpreted by me reveals normal sinus rhythm, rate 81, abnormal R-wave progression, inferior Q-waves, consistent with old inferior infarct. Interpretation: Abnormal EKG Imaging Results: Imaging Impressions Chest X-Ray 02/26/18 12:45 Impression: 1. No pneumonia or effusion. 2. Cardiomegaly. No failure. 3. Chronic bronchitis unchanged. Chest/Thorax CTA 02/26/18 13:52 Impression: 1. No evidence of thrombopulmonary embolic disease. 2. Bronchitis, minimal bronchial mucous plugging, and right middle lobe and bilateral lower lobe linear atelectasis, similar to August 2017. 3. No confluent pneumonia/consolidation. 4. Minimal interstitial edema in the lower lung zones and trace bilateral pleural effusions. 5. Cardiomegaly. No pericardial effusion. Findings discussed with Emergency Department physician, Dr. Deirdre Anders on February 26, 2018 at 1458 hours. Imaging: I viewed and interpreted images myself ED Course/Re-evaluation: This patient presents with cough, congestion and hypoxia, most concerning for pneumonia. Oxygen saturation 93% on 3 L by nasal cannula. A DuoNeb was given for bronchospasm. Lungs clear to auscultation after the DuoNeb. Initial lactate is elevated, meets severe sepsis guidelines. Will give gentle IV fluids per the sepsis protocol over 6 hr, given congestive heart failure likely contributing to clinical presentation. 2:00 p.m.-this patient looks much better overall. Oxygen saturation 92% on 3 L by nasal cannula. X-ray reveals no obvious pneumonia or pulmonary edema. Clinically she has pneumonia. Rocephin and Zithromax IV given for pneumonia after blood cultures drawn. With an oxygen saturation of 77% on room air and unremarkable chest x-ray, I have some concern for pulmonary embolism, will obtain a CT pulmonary angiogram for further evaluation. CT scan per the radiologist reveals bronchitis, no definite infiltrate. CHF present. The hospitalist service was consulted for admission. Repeat lactate 2.2. This pt utilized 35 minutes of critical care time exclusive of unbundled procedures. Time spent in assessments, order caller/review, medication ordering , discussions with pt and consultants. Organ at risk: pulmonary Differential Diagnosis: Differential diagnosis includes though it is not limited to pneumonia, pneumothorax, pulmonary embolism, aortic dissection, pericarditis, acute coronary syndrome. - Data Points Laboratory Results: Laboratory Results 02/26/18 12:50 02/26/18 12:50 02/26/18 02/26/18 02/26/18 12:50 12:50 12:50 WBC RBC Hgb Hct MCV MCH MCHC RDW Plt Count MPV Neut % (Auto) Lymph % (Auto) [place] % (Auto) Eos % (Auto) Baso % (Auto) Nucleat RBC Rel Count Absolute Neuts (auto) Absolute Lymphs (auto) Absolute Monos (auto) Absolute Eos (auto) Absolute Basos (auto) Absolute Nucleated RBC Immature Gran % Immature Gran # VBG Lactic Acid 2.1 mmol/L mmol/L (0.7-2.1) Sodium Potassium Chloride Carbon Dioxide Anion Gap BUN Creatinine Estimated GFR Glucose Calcium Troponin I 0.052 ng/mL H ng/mL (0.000-0.034) NT-Pro-B Natriuret Pep 1730 pg/mL H pg/mL (0-450) Procalcitonin 0.08 ng/mL ng/mL (0.02-0.10) Nasal Influenza A PCR Nasal Influenza B PCR 02/26/18 02/26/18 02/26/18 12:50 12:50 12:42 WBC 20.41 10^3/uL H 10^3/uL (3.80-9.50) RBC 4.69 10^6/uL 10^6/uL (4.18-5.33) Hgb 12.6 g/dL g/dL (12.6-16.3) Hct 41.3 % % (38.0-47.0) MCV 88.1 fL fL (81.5-99.8) MCH 26.9 pg L pg (27.9-34.1) MCHC 30.5 g/dL L g/dL (32.4-36.7) RDW 13.5 % % (11.5-15.2) Plt Count 266 10^3/uL 10^3/uL (150-400) MPV 10.1 fL fL (8.7-11.7) Neut % (Auto) 84.2 % H % (39.3-74.2) Lymph % (Auto) 10.7 % L % (15.0-45.0) [place] % (Auto) 4.0 % L % (4.5-13.0) Eos % (Auto) 0.4 % L % (0.6-7.6) Baso % (Auto) 0.2 % L % (0.3-1.7) Nucleat RBC Rel Count 0.0 % % (0.0-0.2) Absolute Neuts (auto) 17.17 10^3/uL H 10^3/uL (1.70-6.50) Absolute Lymphs (auto) 2.18 10^3/uL 10^3/uL (1.00-3.00) Absolute Monos (auto) 0.82 10^3/uL H 10^3/uL (0.30-0.80) Absolute Eos (auto) 0.09 10^3/uL 10^3/uL (0.03-0.40) Absolute Basos (auto) 0.04 10^3/uL 10^3/uL (0.02-0.10) Absolute Nucleated RBC 0.00 10^3/uL 10^3/uL (0-0.01) Immature Gran % 0.5 % % (0.0-1.1) Immature Gran # 0.11 10^3/uL H 10^3/uL (0.00-0.10) VBG Lactic Acid Sodium 137 mEq/L mEq/L (135-145) Potassium 4.8 mEq/L mEq/L (3.5-5.2) Chloride 108 mEq/L mEq/L (97-110) Carbon Dioxide 21 mEq/l L mEq/l (22-31) Anion Gap 8 mEq/L mEq/L (6-14) BUN 22 mg/dL mg/dL (7-23) Creatinine 0.9 mg/dL mg/dL (0.6-1.0) Estimated GFR 60 Glucose 242 mg/dL H mg/dL (70-100) Calcium 9.0 mg/dL mg/dL (8.5-10.4) Troponin I NT-Pro-B Natriuret Pep Procalcitonin Nasal Influenza A PCR NEGATIVE FOR FLU A (NEGATIVE) Nasal Influenza B PCR NEGATIVE FOR FLU B (NEGATIVE) Medications Given: Rivaroxaban (Xarelto) 20 mg PO DAILY@18 ROM Stop: 08/25/18 17:59 Last Admin: 02/26/18 18:34 Dose: 20 mg Discontinued Medications Albuterol/Ipratropium (Duoneb) 3 ml IH EDNOW ONE Stop: 02/26/18 13:13 Last Admin: 02/26/18 13:24 Dose: 3 ml Aspirin (Aspirin) 325 mg PO ONCE ONE Stop: 02/26/18 18:33 Last Admin: 02/26/18 19:30 Dose: 325 mg Furosemide (Lasix Injection) 40 mg IVP ONCE ONE Stop: 02/26/18 17:16 Last Admin: 02/26/18 17:06 Dose: 40 mg Azithromycin 500 mg/ Sodium (Chloride) 255 mls @ 255 mls/hr IV EDNOW ONE PRN Reason: Protocol Stop: 02/26/18 15:03 Last Admin: 02/26/18 15:23 Dose: 255 mls Ceftriaxone Sodium/Dextrose (Rocephin 1 Gm (Premix)) 50 mls @ 100 mls/hr IV EDNOW ONE PRN Reason: Protocol Stop: 02/26/18 14:33 Last Admin: 02/26/18 14:44 Dose: 50 mls Sodium Chloride (Ns) 500 mls @ 1,000 mls/hr IV EDNOW ONE PRN Reason: Protocol Stop: 02/26/18 14:40 Last Admin: 02/26/18 17:35 Dose: Not Given Sodium Chloride (Ns) 1,800 mls @ 300 mls/hr 30 ml/kg infuse over 6 hr (1800 ml ) IV EDNOW ONE PRN Reason: Protocol Stop: 02/26/18 20:12 Last Admin: 02/26/18 14:44 Dose: 1,800 mls Ondansetron HCl (Zofran) 4 mg IVP EDNOW ONE Stop: 02/26/18 13:09 Last Admin: 02/26/18 13:11 Dose: 4 mg Departure - Departure Disposition: [facility] In[facility] Acute Clinical Impression: Pneumonia Qualifiers: Pneumonia type: due to unspecified organism Laterality: unspecified laterality Lung location: unspecified part of lung Qualified Code(s): J18.9 - Pneumonia, unspecified organism Condition: Serious
[2018-02-26] MEDS ORDERED: IOPAMIDOL (ISOVUE 370) 100 ML BTL IV ONE (14:00)
[2018-02-26] MEDS ORDERED: AZITHROMYCIN IV 500 MG in NS 250 ML IV ONE (14:04)
[2018-02-26] MEDS ORDERED: NS 500 ML IV ONE (14:11)
[2018-02-26] MEDS ORDERED: NS 1,800 ML IV ONE (14:13)
[2018-02-26] MEDS ORDERED: ALBUTEROL 3 ML DEYVIAL IH PRN (14:24)
[2018-02-26] MEDS ORDERED: ONDANSETRON DISINTEGRATING 4 MG TAB PO PRN (14:24)
[2018-02-26] MEDS ORDERED: ONDANSETRON 4 MG/2 ML VIAL IVP PRN (14:24)
[2018-02-26] MEDS ORDERED: HYDROCODONE/APAP 5/325 TAB PO PRN (14:24)
--- NOTE | 2018-02-26 14:44 | PDGENHP ---
History and Physical - Chief Complaint SOB - History of Present Illness 78-year-old female with congestive heart failure presents with cough and shortness of breath. Onset of sore throat, runny nose and cough yesterday. Symptoms worsened today. Cough is productive and associated with shortness of breath and fever. She feels short of breath at rest and shortness of breath increases with exertion. Vomiting since yesterday, unable to tolerate oral fluids. Seen in her PCPs office just prior to arrival and sent to the ED for evaluation. Flu test was negative in the office. In the ER, found to have Leukocytosis. CXR c/w peribronchial thickening. BNP elevated but essentially baseline. LA: unremarkable Started on Abx in the ER. Provided IVF PMH: TIA/cva, PFO 2012, Diastolic Heart failure. A fibrillation, HTN, depression, PNA, lung nodule, incontinence, R ankle fracture, valvular heart disease (MR-Mod, AR-Mod, TR-Mod-Sev), chronic AC - Social History Smoking Status: Never smoked NO ETOH FmHx: non contributory History Information - Allergies/Home Medication List Allergies/Adverse Reactions: No Known Allergies Allergy (Verified 02/26/18 12:25) Home Medications: Cholecalciferol Vit D3 [Vitamin D3 (*)] 2,000 units PO DAILY 02/26/18 [Last Taken 02/25/18] Escitalopram Oxalate [Lexapro] 5 mg PO DAILY 02/26/18 [Last Taken 02/25/18] Lisinopril [Zestril 10 mg (*)] 10 mg PO DAILY 02/26/18 [Last Taken 02/25/18] Metoprolol Succinate Xr [Toprol Xl 50 mg (*)] 50 mg PO DAILY 02/26/18 [Last Taken 02/25/18] Ranitidine HCl [Zantac] 150 mg PO DAILY 02/26/18 [Last Taken 02/25/18] Rivaroxaban [Xarelto] 20 mg PO DAILY@18 02/26/18 [Last Taken 02/25/18] Spironolactone [Aldactone 25 MG (*)] 12.5 mg PO DAILY 02/26/18 [Last Taken 02/25] Torsemide [Demadex] 20 mg PO DAILY 02/26/18 [Last Taken 02/25/18] I have personally reviewed and updated: medical history, social history - Past Medical History atrial fibrillation, coronary artery disease, GERD, hypertension, TIA Additional medical history: H/O heart failure, HFpEF - Surgical History Reports: no pertinent surgical hx - Family History Positive for: non-pertinent Additional family history: Mom had breast cancer - Social History Smoking Status: Never smoked Alcohol Use: Sober Drug Use: None Additional social history: Lives alone in [place]. Review of Systems Review of Systems: ROS: 10pt was reviewed & negative except for what was stated in HPI & below Physical Exam Physical Exam: Temp Pulse Resp BP Pulse Ox 36.5 C 91 31 H 157/96 H 91 L 02/26/18 13:55 02/26/18 13:55 02/26/18 13:55 02/26/18 13:55 02/26/18 13:55 Constitutional: no apparent distress Eyes: PERRL Ears, Nose, Mouth, Throat: moist mucous membranes, hearing normal, ears appear normal Cardiovascular: regular rate and rhythym, No edema Respiratory: no respiratory distress, rhonchi Gastrointestinal: normoactive bowel sounds, soft, non-tender abdomen Skin: warm Neurologic: AAOx3 Psychiatric: interacting appropriately, not anxious, not encephalopathic Lymph, Heme, Immunologic: No petechiae Lab Data & Imaging Review 02/26/18 12:50 02/26/18 12:50 WBC 20.41 10^3/uL (3.80-9.50) H 02/26/18 12:50 RBC 4.69 10^6/uL (4.18-5.33) 02/26/18 12:50 Hgb 12.6 g/dL (12.6-16.3) 02/26/18 12:50 Hct 41.3 % (38.0-47.0) 02/26/18 12:50 MCV 88.1 fL (81.5-99.8) 02/26/18 12:50 MCH 26.9 pg (27.9-34.1) L 02/26/18 12:50 MCHC 30.5 g/dL (32.4-36.7) L 02/26/18 12:50 RDW 13.5 % (11.5-15.2) 02/26/18 12:50 Plt Count 266 10^3/uL (150-400) 02/26/18 12:50 MPV 10.1 fL (8.7-11.7) 02/26/18 12:50 Neut % (Auto) 84.2 % (39.3-74.2) H 02/26/18 12:50 Lymph % (Auto) 10.7 % (15.0-45.0) L 02/26/18 12:50 Arthur % (Auto) 4.0 % (4.5-13.0) L 02/26/18 12:50 Eos % (Auto) 0.4 % (0.6-7.6) L 02/26/18 12:50 Baso % (Auto) 0.2 % (0.3-1.7) L 02/26/18 12:50 Nucleat RBC Rel Count 0.0 % (0.0-0.2) 02/26/18 12:50 Absolute Neuts (auto) 17.17 10^3/uL (1.70-6.50) H 02/26/18 12:50 Absolute Lymphs (auto) 2.18 10^3/uL (1.00-3.00) 02/26/18 12:50 Absolute Monos (auto) 0.82 10^3/uL (0.30-0.80) H 02/26/18 12:50 Absolute Eos (auto) 0.09 10^3/uL (0.03-0.40) 02/26/18 12:50 Absolute Basos (auto) 0.04 10^3/uL (0.02-0.10) 02/26/18 12:50 Absolute Nucleated RBC 0.00 10^3/uL (0-0.01) 02/26/18 12:50 Immature Gran % 0.5 % (0.0-1.1) 02/26/18 12:50 Immature Gran # 0.11 10^3/uL (0.00-0.10) H 02/26/18 12:50 VBG Lactic Acid 2.1 mmol/L (0.7-2.1) 02/26/18 12:50 Sodium 137 mEq/L (135-145) 02/26/18 12:50 Potassium 4.8 mEq/L (3.5-5.2) 02/26/18 12:50 Chloride 108 mEq/L (97-110) 02/26/18 12:50 Carbon Dioxide 21 mEq/l (22-31) L 02/26/18 12:50 Anion Gap 8 mEq/L (6-14) 02/26/18 12:50 BUN 22 mg/dL (7-23) 02/26/18 12:50 Creatinine 0.9 mg/dL (0.6-1.0) 02/26/18 12:50 Estimated GFR 60 02/26/18 12:50 Glucose 242 mg/dL (70-100) H 02/26/18 12:50 Calcium 9.0 mg/dL (8.5-10.4) 02/26/18 12:50 NT-Pro-B Natriuret Pep 1730 pg/mL (0-450) H 02/26/18 12:50 Nasal Influenza A PCR NEGATIVE FOR FLU A (NEGATIVE) 02/26/18 12:42 Nasal Influenza B PCR NEGATIVE FOR FLU B (NEGATIVE) 02/26/18 12:42 Assessment & Plan Assessment: #Acute Respiratory Failure #Pneumonia vs CHF vs other #Leukocytosis #Hx of Afib, chronic AC #VHD (MR-Mod, AR-Mod, TR-Mod to Severe) #Hx of HTN #Hyperglycemia #N/V Plan: she has not had a fever. She does not have a clear infiltrate. Leukocytosis is present with a left shift. Lungs appear to have rhonchi. Etiology is currently unclear. For now, we will continue abx as ordered in the ER. Given her cardiac history I will obtain a TTE and cardiac w/u. It looks like she was given IVF per the sepsis protocol. I dont think she will be able to tolerate this amount. I will stop her IVF and give her a one time dose of Lasix and determine clinical course. She denies a hx of RAD/Obstructive airway disease. Her CXR does show Hyperinflation. For now, hold off on other agents suchs as bronchodilator or steroids Repeat CXR in a.m. cont appropriate home meds antiemetics as needed
[2018-02-26] MEDS ORDERED: FUROSEMIDE 40 MG/4 ML VIAL IVP ONE ×2 (16:44→17:15)
[2018-02-26] MEDS ORDERED: ASPIRIN 325 MG TAB PO ONE (18:32)
[2018-02-26] MEDS: RIVAROXABAN 20 MG TAB PO SCH (18:34)
--- NOTE | 2018-02-26 19:49 | ECHO ---
[email or web address] [address] Main: [phone] Fax: Transthoracic Echocardiogram Name: DEVENDRA DAIGLE MR#: [id number] Study Date: 02/26/2018 Study Time: 05:40 PM Date of : 1940 Age: 78 year(s) Height: 162.6 cm (64 in.) Weight: 59.87 kg (132 lb.) BSA: 1.64 m2 Gender: Female Examination: Echo Indication: Indeterminate troponin/pneumonia 101 Image Quality: Contrast: Requested by: Ellis Toledo BP: 101 mmHg/67 mmHg Heart Rate: Rhythm: Indication: Indeterminate troponin/pneumonia Procedure Staff Benz[employer] Utility Operator: Shelly Alarcon RDCS Reading Physician: Perico Garg MD Requesting Provider: Conclusions: Normal size left ventricle. Technically limited study. Image quality precludes a detailed assessment of regional wall motion. However, apical 4-chamber views suggest severely reduced LV systolic function (estimated LLVEF 20-25%) with relatively preserved contractility at the base of the LV and severe hypokinesis of the distal 2/3 to 3/4 of the LV posssibly consistent with stress cardiomyopathy (Takotsubo sundrome). Mild mitral annular calcification. Moderate to severe mitral regurgitation. Mild aortic cusp calcification is noted. Mild aortic valve regurgitation is present. Severe tricuspid regurgitation is present. Tricuspid leaflets do not coapt completely. RVSP is 35-45mmHG. No pericardial effusion. Compared to 09/15/2017, LV systolic function has decreased significantly (LVEF previously reported as 57%) and new wall motion abnormalites sugestive of stress cardiomyopathy are present. Measurements: Chambers Valvular Assessment AV/MV Valvular Assessment TV/PV Normal Normal Normal Name Value Range Name Value Range Name Value Range Ao [place] (MM): 3.3 cm (2.2 cm-3.7 AV Vmax: 1.32 m/s (1 m/s-1.7 TR Vmax: 2.50 mm/s ( - ) cm) m/s) TR PGmax: 25 mmHg ( - ) IVSd (2D): 0.6 cm (0.6 cm-1.1 AV meanP mmHg ( - ) syst. PAP: 35 mmHg ( - ) cm) LAURIE (VTI): 1.7 cm ( - ) LVDd (2D): 3.8 cm (3.9 cm-5.3 AR (PHT): 653 ms ( - ) cm) MV E Vmax: 0.85 m/s ( - ) LVPWd (2D): 0.5 cm ( - ) MV A Vmax: 0.52 m/s ( - ) LVOTd 1.9 cm 1.9 cm mm MV E/A: 1.63 ( - ) LVEF (MOD4): 55 % (>=55 %) Patient: DEVENDRA DAIGLE Study Date: 02/26/2018 Page 1 of 2 05:40 PM Continued Measurements: Chambers Valvular Assessment AV/MV Valvular Assessment TV/PV Name Value Name Value Name Value LADs: 3.6 cm MV E' Septal: 0.07 m/s CVP (est.): 10 mmHg LADs Lon.2 cm MV E/E' Septal: 12.70 LA Area: 27.3 cm2 MV E/E' Lateral: 10.60 LA Volume: 83 ml MR Vena Contracta: 0.3 cm LA Volume Index: 50.6 ml/m2 AR Vmax: 4.02 cm/s Additional Vessels Name Value Ao Ascendin.1 cm Findings: Left Ventricle: Normal size left ventricle. No LV hypertrophy. Diastolic dysfunction is present. . Technically limited study. Image quality precludes a detailed assessment of regional wall motion. However, apical 4-chamber views suggest severely reduced LV systolic function (estimated LLVEF 20-25%) with relatively preserved contractility at the base of the LV and severe hypokinesis of the distal 2/3 to 3/4 of the LV posssibly consistent with stress cardiomyopathy (Takotsubo sundrome). Right Ventricle: Upper normal size right ventricle. Left Atrium: The left atrium is severely dilated. PFO by color flow. Right Atrium: The right atrium is severely dilated. Mitral Valve: Mild mitral annular calcification. Moderate to severe mitral regurgitation. Aortic Valve: The aortic valve is tri-leaflet. Mild aortic cusp calcification is noted. Mild aortic valve regurgitation is present. Tricuspid Valve: Severe tricuspid regurgitation is present. Tricuspid leaflets do not coapt completely. RVSP is 35-45mmHG. Pulmonic Valve: Pulmonary valve not well visualized. Aorta: Borderline ascending aorta dilatation. The aorta is normal. Pericardium: No pericardial effusion. Left side pleural effusion. (No Signature Object) Patient: DEVENDRA DAIGLE Study Date: 02/26/2018 Page 2 of 2 05:40 PM [id number]
--- NOTE | 2018-02-26 21:33 | PDMN ---
Medical Necessity Medical necessity: Pt meets IP criteria as of 02/26/2018 per and MCG M-282 ( pneumonia); est los > 2 mn for ongoing tx and management of pneumonia with leukocytosis and hypoxia; requiring further work up, respiratory support, and IV ABX; comorbid advanced age and CHF.
[2018-02-26] MEDS: BENZONATATE 100 MG CAP PO PRN (23:19)
[2018-02-27] MEDS ORDERED: METOPROLOL TARTRATE 5 MG/5 ML INJ IVP ONE (02:41)
[2018-02-27] MEDS ORDERED: MAGNESIUM HYDROXIDE 30 ML UDCUP PO PRN (03:50)
[2018-02-27] MEDS ORDERED: POLYETHYLENE GLYCOL 3350 17 GM PKT PO PRN (03:50)
[2018-02-27] MEDS ORDERED: BISACODYL 10 MG SUPP PR PRN (03:50)
[2018-02-27] MEDS ORDERED: LACTULOSE 20 GM/30 ML UDCUP PO PRN (03:50)
[2018-02-27] MEDS: ALBUTEROL 3 ML DEYVIAL IH SCH ×5 (03:53→21:22)
[2018-02-27] MEDS: METOPROLOL SUCCINATE XR 50 MG TAB PO SCH (04:15)
[2018-02-27 05:25] LABS: PLATELET COUNT 241 10^3/uL (150-400)
[2018-02-27] MEDS ORDERED: DILTIAZEM 25 MG/5 ML VIAL IVP ONE ×2 (07:45→09:00)
[2018-02-27] MEDS ORDERED: AZITHROMYCIN 250 MG TAB PO SCH (09:00)
[2018-02-27] MEDS ORDERED: SPIRONOLACTONE 25 MG TAB PO SCH (09:00)
[2018-02-27] MEDS ORDERED: FUROSEMIDE 40 MG/4 ML VIAL IVP SCH (09:00)
[2018-02-27] MEDS ORDERED: TORSEMIDE 20 MG TAB PO SCH (09:00)
--- NOTE | 2018-02-27 09:15 | HOSPPROG ---
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 * acute episode atrial fibrillation rapid ventricular rate, history paroxysmal AFib on chronic anticoagulation * acute hypoxemic respiratory failure * acute rhino virus URI and bronchitis (no infiltrates on CT) * elevation of cardiac troponins, suspect demand ischemia due to above, however need to rule out coronary issues particularly with new cardiomyopathy PAST MEDICAL HISTORY: AFib, diastolic heart failure Valvular heart disease with moderate mitral regurgitation moderate aortic insufficiency, moderate to severe tricuspid regurgitation Patent foramen ovale TIA/stroke Hypertension Lung nodule, pneumonia PLANS: * Continue anticoagulation * NPO for the moment with possible procedures to be done today * Dr. Perico Garg will be seeing the patient from Cardiology, consider angiography * Will continue to work on titrating heart rate control with beta-irwin and diltiazem, may need to add digoxin * If blood pressures remain low consider electric cardioversion attempt * At the moment will not give further diuresis until we see how her heart rate settles but further diuresis will be indicated when blood pressures allow * Droplet precaution for rhino virus * For bronchitis will consider possible steroid, but with a normal procalcitonin and no fever will stop her azithromycin * Will add flutter valve to help with secretions * Attempting to transfer the patient to progressive care unit if a bed opens up there I will review with Dr. Garg after he is seen the patient SUBJECTIVE: Remain quite short of breath, worse than yesterday Some focal sharp pain at left costal margin with coughing, but no anginal-type chest discomfort Intermittent nausea Feels constipated OBJECTIVE Vitals reviewed: Still with very fast heart rates from her AFib, blood pressures intermittently low when she has gotten beta and calcium blockers 120 systolic now; she is tachypneic and now requiring 7 L by OxyMask, no fever Pediatric Clinical Dietician, my review: Rapid atrial fibrillation somewhat slowed after some beta-irwin and diltiazem Exam: alert oriented, mildly anxious, fatigued appearance skin warm dry color ok, no cyanosis resps mildly labored at rest on mask oxygen lungs I course rales and rhonchi Mild JVD is present heart irregular and rapid abd soft nondistended nontender, bowel sounds present limbs warm, no edema iv site ok I reviewed images from chest x-ray this morning and compared with yesterday, as well as the images from her CT scan chest last evening: There is some degree of pulmonary vascular engorgement but no pulmonary edema or pleural effusions. There are no pulmonary infiltrates. There is evidence of bronchitis without mucus plugging. The heart silhouette is quite large I reviewed her echocardiogram which shows a global cardiomyopathy which is new, ejection fraction decreased from near 60 to 20-25 with preservation of function at the base of the heart consistent with possible stress-induced cardiomyopathy. There is moderate to severe MR, also significant TR and pulmonary pressures difficult to accurately assess appear to be somewhere between 35-45 Objective: Vital Signs Temp Pulse Resp BP Pulse Ox 36.6 C 135 H 20 115/72 90 L 02/27/18 07:18 02/27/18 07:52 02/27/18 07:18 02/27/18 07:18 02/27/18 07:18 Microbiology 02/26/18 14:13 Respiratory Panel (PCR) - Final Nasal, Sinus - Aspirate Human Rhinovirus/Enterovirus Laboratory Results 02/27/18 04:31 02/27/18 04:31 02/26/18 02/27/18 02/28/18 06:59 06:59 06:59 Intake Total 755 Output Total 1150 Balance -395 - Time Spent With Patient Time Spent with Patient: greater than 35 minutes Time Spent with Patient: Greater than 35 minutes spent on this patients care, greater than 50% of time spent counseling, educating, and coordinating care regarding the above mentioned plan. ICD10 Worksheet Patient Problems: Problems Problem Status Onset Pneumonia Acute Chest pain Acute
[2018-02-27] MEDS: SENNOSIDES/DOCUSATE SODIUM TAB PO SCH ×2 (09:22→21:53)
[2018-02-27] MEDS: ESCITALOPRAM OXALATE 10 MG TAB PO SCH (09:23)
[2018-02-27] MEDS: FAMOTIDINE 20 MG TAB PO SCH (09:23)
[2018-02-27] MEDS: LISINOPRIL 10 MG TAB PO SCH (09:23)
[2018-02-27] MEDS: CHOLECALCIFEROL VIT D3 1,000 UNITS TAB PO SCH (09:28)
--- NOTE | 2018-02-27 11:01 | ASMTCMCOM ---
CM Note CM Note Notes: Pt in for pneumonia. Pt having cardiac issues, may move to PCU. PT on hold today, OT eval pending. CM to follow. D/c plan of care is TBD. Date Signed: 02/27/2018 10:59 AM Electronically Signed By:VIDAL Colvin
--- NOTE | 2018-02-27 12:52 | PDCARPN ---
Cardiology Progress Note Assessment/Plan: 78 y/o F with h/o A-fib, chronic diastolic CHF, and valvular heart disease. Has been followed at [facility] by Dr. Britt and Dr. David. Recently developed cough, sneezing, rhinorea, and nausea/vomitimg. Admitted with URI, r/o PNA/ sepsis. Troponins mildly elevated (up to 0.739, so far). Echo shows a new finding of severely decreased LV systolic function. Developed rapid AF early a.m. of 02/27. Cardiomyopathy: She has new finding of severely reduced left ventricular systolic function with an ejection fraction of 20-25%. No chest pain. LVEF was 57% on an echo in our office in August of this year. No chest pain or ischemic changes on ECG. Modest troponin elevation. She has preserved contractility at the base with severe hypokinesis of all remaining wall segments, crossing the distribution territories of all 3 coronary arteries. Her entire presentation is consistent with stress cardiomyopathy (Takotsubo syndrome). - Continue metoprolol, lisinopril, and aldactone. - Expect that LV function will normalize in days to weeks. Acute Systolic CHF: Her past history has been notable for chronic diastolic CHF. She has no obvious physical signs of volume overload such as rales or lower extremity edema. Her BNP is up to 12,300 (her baseline is 0080-0103). - Diurese cautiously with intravenous furosemide. Atrial Fibrillation: She has a prior history of paroxysmal atrial fibrillation. Sometime over the past 2 years, she was thought to have developed permanent atrial fibrillation. The amiodarone that she was previously taking was discontinued. Interestingly, on admission for this hospital encounter, she was in normal sinus rhythm. She developed recurrent atrial fibrillation/RVR early this morning. Her ventricular rate is still suboptimally controlled. - Will give at least 2 doses of intravenous digoxin to assist with rate control. - Continue current metoprolol dosage. - Will start amiodarone 200 mg twice daily. - If she does not spontaneously return to normal sinus rhythm, will reconsider the possibility of cardioversion and chronic amiodarone therapy. - Continue Xarelto for stroke prophylaxis. Coronary Atherosclerosis: She underwent an evaluation at the [facility] in [place] 2 years ago this month. She had a combined CT coronary calcium score/coronary angiogram. Her total Agatston score was just 15. Her CT coronary angiogram demonstrated minimal plaque with no significant luminal narrowing. - Therefore, I do not feel that coronary angiography is necessary to exclude CAD as the cause of her recently decreased LV systolic function. Valvular Heart Disease: She has a history of moderate AR, moderate MR, and severe TR. Her echocardiogram this admission demonstrates that her mitral regurgitation is moderate to severe. This is probably based on her acutely LV dysfunction. - These issues will be followed longitudinally. She will be having repeat echocardiograms in the coming days to weeks to assess for recovery of her LV function and any changes in her valve status. 02/27/18 13:01 Subjective: Short of breath; no chest pain. Objective: Vital Signs (8 Hrs) Temp Pulse Resp BP Pulse Ox 02/27/18 11:38 131 H 22 H 88 L 02/27/18 09:37 36.4 C 123 H 29 H 106/76 97 02/27/18 09:23 114/80 02/27/18 09:05 118 H 30 H 114/80 96 02/27/18 08:30 117 H 30 H 105/81 H 7 L 02/27/18 07:52 135 H 02/27/18 07:40 130 H 02/27/18 07:18 36.6 C 128 H 20 115/72 90 L Intake/Output (24 Hrs) 02/26/18 02/27/18 02/28/18 05:59 05:59 05:59 Intake Total 755 Output Total 1150 Balance -395 Intake: IV Infused (ml) 755 Azithromycin IV 500 mg In 255 Ns 250 ml @ 255 mls/hr IV EDNOW ONE Rx#: [id number] Ns 1,800 ml @ 300 mls/hr 300 IV EDNOW ONE Rx#: [id number] Output: Urine (ml) 1150 Toilet 1150 Other: Weight 60.5 kg Number of Voids Toilet 2 Result Diagrams: 02/27/18 04:31 02/27/18 04:31 Cardiac Labs: Cardiac Lab Results (72 Hrs) 02/26/18 02/26/18 23:35 17:45 Troponin I 0.739 H 0.470 H - Physical Exam Constitutional: WDWN Eyes: anicteric sclera Ears, Nose, Mouth, Throat: moist mucous membranes Cardiovascular: irregularly irregular Respiratory: other (rhonci but no rales or wheezes) Gastrointestinal: normoactive bowel sounds, no tenderness, no masses Skin: no edema Neurologic: AAOx3 Psychiatric: not anxious ICD10 Worksheet Patient Problems: Problems Problem Status Onset Pneumonia Acute Chest pain Acute
[2018-02-27] MEDS: DIGOXIN 500 MCG/2 ML AMP IVP SCH ×2 (14:11→21:53)
[2018-02-27] MEDS: AMIODARONE HCL 200 MG TAB PO SCH ×2 (14:12→21:53)
--- NOTE | 2018-02-27 15:26 | CPEKG ---
Test Reason : OPEN Blood Pressure : / mmHG Vent. Rate : 082 BPM Atrial Rate : 083 BPM P-R Int : 198 ms QRS Dur : 090 ms QT Int : 449 ms P-R-T Axes : 027 -79 101 degrees QTc Int : 525 ms Sinus rhythm Left anterior fascicular block Low voltage, extremity leads Nonspecific T abnrm, anterolateral leads Prolonged QT interval Confirmed by Thomas Babcock ([id number]) on 02/27/2018 3:26:01 PM Referred By: Confirmed By:Thomas Babcock
--- NOTE | 2018-02-27 15:27 | CPEKG ---
Test Reason : OPEN Blood Pressure : / mmHG Vent. Rate : 141 BPM Atrial Rate : 152 BPM P-R Int : 160 ms QRS Dur : 076 ms QT Int : 330 ms P-R-T Axes : 000 -84 090 degrees QTc Int : 506 ms Atrial fibrillation Low voltage, extremity leads Repolarization abnormality, prob rate related Prolonged QT interval Atrial fibrillation is new in comparison to prior ECG Confirmed by Thomas Babcock ([id number]) on 02/27/2018 3:26:40 PM Referred By: Confirmed By:Thomas Babcock
[2018-02-27] MEDS: RIVAROXABAN 20 MG TAB PO SCH (18:15)
[2018-02-27] MEDS: ACETAMINOPHEN 325 MG TAB PO PRN (21:52)
[2018-02-27] MEDS: BENZONATATE 100 MG CAP PO PRN (21:52)
[2018-02-27] MEDS: diphenhydrAMINE 25 MG CAP PO PRN (21:55)
[2018-02-28 05:28] LABS: PLATELET COUNT 227 10^3/uL (150-400)
[2018-02-28] MEDS: DIGOXIN 500 MCG/2 ML AMP IVP SCH (05:43)
[2018-02-28] MEDS: ALBUTEROL 3 ML DEYVIAL IH SCH ×2 (06:07→11:01)
[2018-02-28] MEDS: ESCITALOPRAM OXALATE 10 MG TAB PO SCH (09:14)
[2018-02-28] MEDS: AMIODARONE HCL 200 MG TAB PO SCH ×2 (09:15→20:54)
[2018-02-28] MEDS: FAMOTIDINE 20 MG TAB PO SCH (09:15)
[2018-02-28] MEDS: SENNOSIDES/DOCUSATE SODIUM TAB PO SCH ×2 (09:17→20:54)
[2018-02-28] MEDS: METOPROLOL SUCCINATE XR 50 MG TAB PO SCH (09:18)
[2018-02-28] MEDS: CHOLECALCIFEROL VIT D3 1,000 UNITS TAB PO SCH (09:18)
[2018-02-28] MEDS: LISINOPRIL 10 MG TAB PO SCH (09:20)
--- NOTE | 2018-02-28 11:27 | PDCARPN ---
Cardiology Progress Note Assessment/Plan: Assessment/plan: 78-year-old female with history of what appears to be permanent atrial fibrillation, a low calcium score 15 to years ago, known valvular heart disease. She was admitted with acute hypoxic respiratory failure and found to have rhino viral bronchitis. Troponin minimally elevated. BNP elevated. Echocardiogram with a new and significant decrement in her ejection fraction, most consistent with stressed induced cardiomyopathy. 1. Cardiomyopathy with acute systolic heart failure: She appears to be approaching euvolemia. Continue IV Lasix for 1 more day. She is on appropriate medical therapy with Toprol and lisinopril. No spironolactone for now. Would recommend repeat echo prior to discharge to assess for recovery of LV function. Her minimally elevated troponin is likely due to heart failure. I doubt she has significant coronary disease especially given her low positive calcium score. 2. Atrial fibrillation: She has received 2 doses of IV digoxin here. She is now on amiodarone, beta-irwin. She is chronically on Xarelto. Would not cardiovert for now as her rate is improved. I also do not think she would stay in sinus rhythm given her ongoing lung infection. Given her slightly prolonged QT, may not be a good candidate for long-term amiodarone therapy. However, will continue for now as it does seem to be improving her ventricular rate. 3. Hypoxia: Due to a combination of volume overload and rhino virus infection. Oxygen requirements are improving. 4. Multivalvular regurgitation the colon may improve with diuresis and improvement in ejection fraction. Will need to be followed in the outpatient setting. 5. Ascending aortic aneurysm: 4.1 cm on echo; [address] This will be followed serially. 6. PFO versus ASD: Suggested by color-flow Doppler on echo. 02/28/18 11:28 Subjective: She reports feeling better. She continues to cough but overall this symptom is improved. Denies angina. Mild dyspnea. She slept with her bed flat. Objective: Vital Signs (8 Hrs) Temp Pulse Resp BP Pulse Ox 02/28/18 11:00 79 12 100 02/28/18 09:18 73 110/74 02/28/18 07:56 36.8 C 70 18 94/52 L 96 02/28/18 05:43 82 02/28/18 04:00 36.4 C 76 16 119/73 95 Intake/Output (24 Hrs) 02/27/18 02/28/18 03/01/18 05:59 05:59 05:59 Intake Total 755 780 Output Total 1150 Balance -395 780 Intake: Oral (ml) 780 IV Infused (ml) 755 Azithromycin IV 500 mg In 255 Ns 250 ml @ 255 mls/hr IV EDNOW ONE Rx#: [id number] Ns 1,800 ml @ 300 mls/hr 300 IV EDNOW ONE Rx#: [id number] Output: Urine (ml) 1150 Toilet 1150 Other: Weight 60.5 kg 60.328 kg Number of Voids Toilet 2 3 Appears mildly ill. Coughing throughout. JVP 12 cm of water. Irregularly irregular rhythm. Soft early systolic murmur at the left lower sternal border and the apex. No S3 Diffuse coarse rhonchi. Bibasilar rales. No lower extremity edema Result Diagrams: 02/28/18 04:55 02/28/18 04:55 Cardiac Labs: Cardiac Lab Results (72 Hrs) 02/26/18 02/26/18 23:35 17:45 Troponin I 0.739 H 0.470 H EKG: Serial tracings reviewed: Initial sinus rhythm without ischemia. QT is minimally prolonged. 2nd tracing shows atrial fibrillation with rapid ventricular response. No ischemic changes. Telemetry: AF with CVR Echocardiogram: Reviewed: Severely reduced LV systolic function, ejection fraction 20-25%. Wall motion abnormality in a pattern consistent with stress-induced cardiomyopathy. Moderate to severe mitral regurgitation, moderate to severe tricuspid regurgitation. Moderate aortic regurgitation ICD10 Worksheet Patient Problems: Problems Problem Status Onset chronic disease mgmt/transitional care Acute Chest pain Acute Pneumonia Acute
--- NOTE | 2018-02-28 12:41 | HOSPPROG ---
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 moderate aortic insufficiency, moderate to severe tricuspid regurgitation Patent foramen ovale TIA/stroke Hypertension Lung nodule, pneumonia PLANS: * Continue anticoagulation with Xarelto * Continue Metoprolol 50 mg qd, Amiodarone 200 mg BID, s/p 2 doses of IV Digoxin , cardiology following who note slightly prolonged QT, may not be a good candidate for terminal operator amiodarone therapy, but will continue for now as it is improving her ventricular rate * Continue diuresis for today with 40 mg IV Lasix, cardiology requesting repeat TTE prior to discharge to assess recovery of LV function * Droplet precaution for rhino virus * For bronchitis will consider possible steroid, but with a normal procalcitonin and no fever azithromycin has been d/c * Continue to wean oxygen in setting of rhino virus and fluid overload * Multivalvular regurg may improve with diuresis, will need to be f/u as outpatient Dispo: Pending clinical course Subjective: Patient reports continued cough Objective: Vital Signs Temp Pulse Resp BP Pulse Ox 36.9 C 83 18 118/73 94 02/28/18 12:00 02/28/18 12:00 02/28/18 12:00 02/28/18 12:00 02/28/18 12:00 Laboratory Results 02/28/18 04:55 02/28/18 04:55 02/27/18 02/28/18 03/01/18 05:59 05:59 05:59 Intake Total 755 780 Output Total 1150 Balance -395 780 - Physical Exam Constitutional: no apparent distress Eyes: PERRL Ears, Nose, Mouth, Throat: moist mucous membranes Cardiovascular: irregularly irregular Respiratory: no respiratory distress Skin: warm Neurologic: AAOx3 Psychiatric: interacting appropriately ICD10 Worksheet Patient Problems: Problems Problem Status Onset Pneumonia Acute chronic disease mgmt/transitional care Acute Chest pain Acute
[2018-02-28] MEDS: FUROSEMIDE 40 MG/4 ML VIAL IVP SCH (15:27)
[2018-02-28] MEDS: LEVALBUTEROL 0.63 MG/3 ML DEYVIAL IH SCH ×2 (16:20→22:38)
[2018-02-28] MEDS: RIVAROXABAN 15 MG TAB PO SCH (18:12)
[2018-02-28] MEDS: ACETAMINOPHEN 325 MG TAB PO PRN (18:19)
[2018-02-28] MEDS: BENZONATATE 100 MG CAP PO PRN (22:42)
[2018-02-28] MEDS: diphenhydrAMINE 25 MG CAP PO PRN (22:42)
[2018-03-01] MEDS: LEVALBUTEROL 0.63 MG/3 ML DEYVIAL IH SCH ×4 (06:00→20:53)
[2018-03-01] MEDS: ESCITALOPRAM OXALATE 10 MG TAB PO SCH (08:39)
[2018-03-01] MEDS: SENNOSIDES/DOCUSATE SODIUM TAB PO SCH ×2 (08:39→20:50)
[2018-03-01] MEDS: CHOLECALCIFEROL VIT D3 1,000 UNITS TAB PO SCH (08:39)
[2018-03-01] MEDS: FAMOTIDINE 20 MG TAB PO SCH (08:39)
[2018-03-01] MEDS: LISINOPRIL 10 MG TAB PO SCH (08:39)
[2018-03-01] MEDS: METOPROLOL SUCCINATE XR 50 MG TAB PO SCH (08:39)
[2018-03-01] MEDS: FUROSEMIDE 40 MG/4 ML VIAL IVP SCH (08:39)
[2018-03-01] MEDS: AMIODARONE HCL 200 MG TAB PO SCH (08:54)
--- NOTE | 2018-03-01 09:57 | PDCARPN ---
Cardiology Progress Note Assessment/Plan: Assessment/plan: 78-year-old female with history of what appears to be permanent atrial fibrillation, a low calcium score 15 to years ago, known valvular heart disease. She was admitted with acute hypoxic respiratory failure and found to have rhinovirus bronchitis. Troponin minimally elevated. BNP elevated. Echocardiogram with a new and significant decrement in her ejection fraction, most consistent with stressed induced cardiomyopathy. Overall she is clinically improving. 1. Cardiomyopathy with acute systolic heart failure: She appears to be approaching euvolemia. She has diuresed about 1 kg with IV Lasix. Plan to switch to her outpatient Demadex tomorrow. She is on appropriate medical therapy with Toprol and lisinopril. Will add low-dose spironolactone. Repeat BMP and BNP tomorrow. Have also ordered limited echo to be done tomorrow to assess for recovery of LV function. Her minimally elevated troponin is likely due to heart failure. I doubt she has significant coronary disease, especially given her low positive calcium score. 2. Atrial fibrillation: She has received 2 doses of IV digoxin here. She is now on amiodarone, beta-irwin. She is chronically on Xarelto, appropriately dosed for her GFR of approximately 43. Would not cardiovert for now as her rate is improved. I also do not think she would stay in sinus rhythm given her ongoing lung infection. Given her slightly prolonged QT will stop amiodarone for now and continue to follow her ventricular rate. 3. Hypoxia: Due to a combination of volume overload and rhino virus infection. She is now off oxygen. 4. Multivalvular regurgitation may improve with diuresis and improvement in ejection fraction. Will need to be followed in the outpatient setting. 5. Ascending aortic aneurysm: 4.1 cm on echo; [address] This will be followed serially. 6. PFO versus ASD: Suggested by color-flow Doppler on echo. 03/01/18 10:00 Subjective: She feels better today. She is coughing less. No angina or dyspnea. No palpitations. She complains of constipation. She also continues to complain of tenderness to palpation and pain with coughing over the anterior portion of her left lowest rib. She reports that 3 weeks ago she had bent down the pick something up and started to hurt Now has been exacerbated by coughing. Objective: Vital Signs (8 Hrs) Temp Pulse Resp BP Pulse Ox 03/01/18 07:35 36.4 C 80 18 100/56 L 91 L 03/01/18 06:19 36.6 C 81 16 120/73 99 03/01/18 06:04 75 20 94 Intake/Output (24 Hrs) 02/28/18 03/01/18 03/02/18 05:59 05:59 05:59 Intake Total 780 1550 Balance 780 1550 Intake: Oral (ml) 780 1550 Other: Weight 60.328 kg 59.3 kg Number of Voids Toilet 3 6 Coughing. JVP 10 cm water. Irregularly irregular rhythm. Soft early systolic murmur left lower sternal border. Diffuse rhonchi but improved compared with yesterday. No lower extremity edema Tenderness to palpation over 4 kcal area of the anterior lowest rib on the left. Result Diagrams: 02/28/18 04:55 02/28/18 04:55 Cardiac Labs: Cardiac Lab Results (72 Hrs) 02/28/18 02/26/18 02/26/18 04:55 23:35 17:45 Troponin I 0.419 H 0.739 H 0.470 H Telemetry: Atrial fibrillation with controlled ventricular response ICD10 Worksheet Patient Problems: Problems Problem Status Onset chronic disease mgmt/transitional care Acute Chest pain Acute Pneumonia Acute
[2018-03-01] MEDS: SPIRONOLACTONE 25 MG TAB PO SCH (11:43)
--- NOTE | 2018-03-01 12:53 | HOSPPROG ---
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 moderate aortic insufficiency, moderate to severe tricuspid regurgitation Patent foramen ovale TIA/stroke Hypertension Lung nodule, pneumonia PLANS: * Continue anticoagulation with Xarelto * Continue Metoprolol 50 mg qd, Amiodarone 200 mg BID, s/p 2 doses of IV Digoxin , cardiology following who note slightly prolonged QT, may not be a good candidate for long line teamster amiodarone therapy, but will continue for now as it is improving her ventricular rate * Continue diuresis for today with 40 mg IV Lasix, plan to switch back to PO Diuretics tomorrow * Cardiology requesting repeat TTE prior to discharge to assess recovery of LV function, ordered for tomorrow * Droplet precaution for rhino virus * For bronchitis will consider possible steroid, but with a normal procalcitonin and no fever azithromycin has been d/c * Continue to wean oxygen in setting of rhino virus and fluid overload * Multivalvular regurg may improve with diuresis, will need to be f/u as outpatient Dispo: Pending clinical course Subjective: Patient reports improved cough this morning Objective: Vital Signs Temp Pulse Resp BP Pulse Ox 36.7 C 81 16 120/73 91 L 03/01/18 11:45 03/01/18 11:45 03/01/18 11:45 03/01/18 11:45 03/01/18 11:45 Laboratory Results 02/28/18 04:55 02/28/18 04:55 02/28/18 03/01/18 03/02/18 05:59 05:59 05:59 Intake Total 780 1550 Balance 780 1550 - Physical Exam Constitutional: no apparent distress Eyes: PERRL Ears, Nose, Mouth, Throat: moist mucous membranes Cardiovascular: irregularly irregular Respiratory: no respiratory distress Gastrointestinal: soft, non-tender abdomen Skin: warm Neurologic: AAOx3 Psychiatric: interacting appropriately ICD10 Worksheet Patient Problems: Problems Problem Status Onset Pneumonia Acute chronic disease mgmt/transitional care Acute Chest pain Acute
[2018-03-01] MEDS: RIVAROXABAN 15 MG TAB PO SCH (17:21)
[2018-03-01] MEDS: BENZONATATE 100 MG CAP PO PRN (20:50)
[2018-03-01] MEDS: diphenhydrAMINE 25 MG CAP PO PRN (20:51)
[2018-03-02] MEDS: LEVALBUTEROL 0.63 MG/3 ML DEYVIAL IH SCH (05:41)
--- NOTE | 2018-03-02 09:28 | PDCARPN ---
Cardiology Progress Note Chief Complaint: SOB/cough Assessment/Plan: Assessment: The patient is a 78 y/o F with a history of PAF, CAD on the basis of a positive calcium score, and valvular heart disease who presented with rhinovirus bronchitis. A echo showed a new CMP which was most consistent with Takotsubo CMP. A repeat echo this morning showed a normalization in her EF. She was in CHF and diuresed with IV Lasix. She was transitioned to PO Torsemide today. Her troponin was minimally elevated but she denied any symptoms suggestive of angina. Also, she has a history of PAF and is currently in a.fib being treated with rate control and anticoagulation. Plan: 1. CMP likely Takotsubo with resolution in her EF by echo this AM. 2. Acute systolic CHF- improved with IV diuresis. Transitioned to her Demadex at her home dosing. BNP is down from 12,000 to 4,600. 3. PAF- She was in NSR on 02/27. Rate controlled with Metoprolol. She will continue Xarelto. Amio was d/c secondary to a prolonged QTc. 4. CAD with positive calcium score and minimally elevated troponin peaking at .739. Related to new CMP and CHF. Unlikely to be ACS with a normal nuc in 2017. 5. Valvular heart disease 6. URI-improving. On RA. Recommed IS. She is stable from a cardiac standpoint and can be d/c home from our standpoint. She will be scheduled to follow up with Dr. Britt in 1-2 weeks. 03/02/18 09:33 Subjective: She is complaining of cough. She denies any chest pressure or tightness. SOB has improved. Objective: Vital Signs (8 Hrs) Temp Pulse Resp BP Pulse Ox 03/02/18 08:00 36.8 C 84 18 107/85 H 92 03/02/18 05:41 77 20 99 03/02/18 04:00 36.7 C 88 16 123/87 H 92 Intake/Output (24 Hrs) 03/01/18 03/02/18 03/03/18 05:59 05:59 05:59 Intake Total 1550 650 Balance 1550 650 Intake: Oral (ml) 1550 650 Other: Weight 60.328 kg 57.3 kg Intake Quantity Yes Sufficient Number of Voids Toilet 6 1 Number of Stools Toilet 1 Result Diagrams: 02/28/18 04:55 03/02/18 05:12 Cardiac Labs: Cardiac Lab Results (72 Hrs) 02/28/18 04:55 Troponin I 0.419 H Telemetry: a.fib rate controlled. - Physical Exam Constitutional: WDWN, healthy appearing Cardiovascular: irregularly irregular Respiratory: bronchial breath sounds Skin: no edema Neurologic: AAOx3 ICD10 Worksheet Patient Problems: Problems Problem Status Onset Pneumonia Acute chronic disease mgmt/transitional care Acute Chest pain Acute
[2018-03-02] MEDS: CHOLECALCIFEROL VIT D3 1,000 UNITS TAB PO SCH (09:43)
[2018-03-02] MEDS: SENNOSIDES/DOCUSATE SODIUM TAB PO SCH (09:43)
[2018-03-02] MEDS: SPIRONOLACTONE 25 MG TAB PO SCH (09:43)
[2018-03-02] MEDS: LISINOPRIL 10 MG TAB PO SCH (09:44)
[2018-03-02] MEDS: FAMOTIDINE 20 MG TAB PO SCH (09:44)
[2018-03-02] MEDS: ESCITALOPRAM OXALATE 10 MG TAB PO SCH (09:44)
[2018-03-02] MEDS: METOPROLOL SUCCINATE XR 50 MG TAB PO SCH (09:45)
[2018-03-02] MEDS ORDERED: TORSEMIDE 20 MG TAB PO SCH (10:00)
[2018-03-02] MEDS ORDERED: POTASSIUM CL 10 MEQ TAB ONE (11:31)
[2018-03-02] MEDS ORDERED: POTASSIUM CL 20 MEQ TAB PO ONE (11:45)
--- NOTE | 2018-03-02 11:59 | ASMTLACE ---
DANIELLE Length of stay for Answers: 3 days current admission Acuity / Level of Answers: Yes Care: Did the patient have an inpatient admission? Comorbidities - select Answers: Cerebrovascular disease all that apply (CVA, TIA, aneurysms, vasc ular dementia) # of Emergency department Answers: 1-2 visits in the last 6 months Social determinants Answers: Mental health diagnosis (anxiety, depression, pers onality disorders, etc.) Score: 11 Date Signed: 03/02/2018 11:59 AM Electronically Signed By:Amada Wood RN
--- NOTE | 2018-03-02 12:01 | ASMTDCNOTE ---
Case Management Discharge Discharge Order Complete? Answers: Yes Patient to Obtain Answers: Independently Medications Transportation Arranged Answers: Family/Friends Faxed Final Orders Answers: Yes Discharge Comments Notes: Patient agreeable to home care scheduler. Referral to [facility] was accepted. Friend to transport home. Date Signed: 03/02/2018 12:00 PM Electronically Signed By:Amada Wood RN
[2018-03-02 12:08] VITALS: BP 116/64
[2018-03-02] MEDS ORDERED: ALBUTEROL 3 ML DEYVIAL IH PRN (12:37)
[2018-03-02] MEDS ORDERED: ALBUTEROL 60 PUFFS/8 GM MDI IH PRN (12:37)
--- NOTE | 2018-03-02 12:47 | PDIAF ---
- Diagnosis Diagnosis: CHF Code Status: Full Code - Medication Management Discharge Medications: electronically signed and located in the Home Medication List. - Orders Services needed: Registered Nurse Isolation Type: Droplet Isolation - Follow Up Care Current Providers and Referrals: GEOFF RILEY [Other] - As per Instructions Manny Britt MD [Medical Doctor] - 03/11/18 2:15 pm (Please arrive 15 minutes prior to your scheduled appointment time.)
--- NOTE | 2018-03-02 16:31 | PDDCSUM ---
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 * acute episode atrial fibrillation rapid ventricular rate, history paroxysmal AFib on chronic anticoagulation * acute hypoxemic respiratory failure * acute rhino virus URI and bronchitis (no infiltrates on CT) * elevation of cardiac troponins, suspect demand ischemia due to above * Multivalvular regurgitation PLANS: * Continue anticoagulation with Xarelto * Continue Metoprolol 50 mg qd, Amiodarone 200 mg BID, s/p 2 doses of IV Digoxin , cardiology following who note slightly prolonged QT, may not be a good candidate for assisted amiodarone therapy, but will continue for now as it is improving her ventricular rate * Continue diuresis s/p IV Lasix, switched back to home PO Torsemide * Repeat TTE prior to discharge shows recovery of LV function * Droplet precaution for rhino virus * Supportive care for bronchitis, azithromycin has been d/c * Multivalvular regurg may improve with diuresis, will need to be f/u as outpatient Time spent on discharge was >35 minutes with >50% of time spent on patient education and counseling.
--- NOTE | 2018-03-05 10:58 | CPEKG ---
Test Reason : OPEN Blood Pressure : / mmHG Vent. Rate : 081 BPM Atrial Rate : 081 BPM P-R Int : 189 ms QRS Dur : 089 ms QT Int : 436 ms P-R-T Axes : 014 -73 096 degrees QTc Int : 506 ms Sinus rhythm Abnormal R-wave progression, early transition Inferior infarct, old Lateral leads are also involved Prolonged QT interval Confirmed by Deirdre Anders ([id number]) on 03/05/2018 10:57:36 AM Referred By: Confirmed By:Deirdre Anders
== END 2018-03-02 11:53 | disposition home health service (06) | DRG 291 ==
LOC: F3N 15:30 → F2W 02-27 12:15
PROVIDERS: ADMIT Family Medicine; ATTEND Family Medicine
DX: I11.0 Hypertensive heart disease with heart failure (principal); I50.21 Acute systolic (congestive) heart failure; J96.01 Acute respiratory failure with hypoxia; I08.3 Combined rheumatic disorders of mitral, aortic and tricuspid valves; I48.0 Paroxysmal atrial fibrillation; E86.9 Volume depletion, unspecified; J20.6 Acute bronchitis due to rhinovirus; I25.10 Atherosclerotic heart disease of native coronary artery without angina pectoris; Z80.3 Family history of malignant neoplasm of breast; Z79.01 Long term (current) use of anticoagulants; Z86.73 Personal history of transient ischemic attack (TIA), and cerebral infarction without residual deficits
CPT/HCPCS: 96365; 97116-GP; 97161-GP; 97165-GO; 97535-GO; G8978-GP-CJ; G8979-GP-CI; G8987-GO-CI; G8988-GO-CI; G8989-GO-CI; J0456; J0696; J1160; J1940; J2405; J7613; Q9967

== ENCOUNTER → 2018-03-19 | Outpatient (CLI) | payer OTHER, MEDICAID | LOC: BHFA 11:30 | PROVIDERS: ATTEND Internal Medicine Cardiovascular Disease | DX: I48.91 Unspecified atrial fibrillation (principal); R06.02 Shortness of breath ==